=== PATIENT | female | born 1950 | race Caucasian/White ===

== ENCOUNTER 2020-03-22 15:53 | Outpatient (REF) | payer OTHER, SELFPAY ==
[2020-03-22 16:57] LABS: Alanine Aminotransferase 24 U/L (0-31); Anion Gap 11 (12-20); Blood Urea Nitrogen 16 mg/dL (9-16); Carbon Dioxide 26 mmol/L (22-29); Chloride 107 mmol/L (96-108); Estimated Glomerular Filt Rate 54; Sodium 140 mmol/L (135-145)
== END 2020-03-22 15:54 | disposition home or self-care (01) ==
LOC: HO.LAB 15:53
PROVIDERS: PCP Family Medicine; Visit Provider Family Medicine
DX: I10 Essential (primary) hypertension (principal); E78.00 Pure hypercholesterolemia, unspecified; Z79.899 Other long term (current) drug therapy
CPT/HCPCS: 36415; 80051; 82550; 82565; 84460; 84520

== ENCOUNTER 2020-04-25 12:47 | Outpatient (REF) | payer MEDICARE, OTHER, SELFPAY ==
--- NOTE | 2020-04-25 | MM_ITS ---
"EXAMINATION: BONE DENSITOMETRY CLINICAL INDICATION: Age-related osteoporosis without current pathological fracture. COMPARISON: Previous BD dated 04/23/2018 and baseline BD dated 10/04/2007. TECHNIQUE: Using a [id number] | [employer] DXA System (software version: 13.1) manufactured by [employer], dual-energy x-ray absorptiometry was performed of the lumbar spine and left hip. The images are of good technical quality. Summary results are attached. FINDINGS: AP SPINE L1-L4: Current: BMD 0.877 g/cm2, Z-score -1.6, T-score -2.5, osteoporosis, 0.6% decrease from previous, 9.5% decrease from baseline (<5% change is not significant). Prior: BMD 0.882 g/cm2. Baseline: BMD 0.969 g/cm2. LEFT FEMUR, NECK: Current: BMD 0.804 g/cm2, Z-score -1.6, T-score -1.7, osteopenia. Prior: BMD 0.817 g/cm2. Baseline: BMD 0.936 g/cm2. LEFT FEMUR, TOTAL: Current: BMD 0.845 g/cm2, Z-score -0.5, T-score -1.3, osteopenia, 0.2% decrease from previous, 10.9% decrease from baseline (<5% change is not significant). Prior: BMD 0.847 g/cm2. Baseline: BMD 0.948 g/cm2. IDENTIFIED RISK FACTORS: Menopause. HISTORY OF FRACTURE: None listed. MEDICATIONS: Vitamin D. MM/XR DEXA axial skeleton IMPRESSION: 1. DIAGNOSIS: Osteoporosis based on the lowest T-score value of -2.5 in the lumbar spine applying World Health Organization criteria. 2. 10-YEAR FRACTURE RISK PREDICTION, FRAX: Major osteoporotic fracture (clinical spine, forearm, hip or shoulder) 9.8%. Hip fracture 1.3%. 3. Treatment Recommendations: NOF guidelines recommend consideration for treatment in postmenopausal women and men age 50 and older presenting with the following: -A hip or vertebral (clinical or morphometric) fracture. -T-score less than or equal to -2.5 at the femoral neck or spine after appropriate evaluation to exclude secondary causes. -Low bone mass at the hip or spine and a 10-year fracture probability by FRAX of greater than or equal to 3% for hip fracture or greater than or equal to 20% for major osteoporotic fracture based on the [place] adapted WHO algorithm. 4. Other Recommendations: All treatment decisions require clinical judgment and consideration of individual patient factors, including patient preferences, comorbidities, previous drug use, risk factors not captured in the FRAX model (e.g. frailty, falls, vitamin D deficiency, increased bone turnover, interval significant decline in bone density) and possible under or overestimation of fracture risk by FRAX. Additional medical evaluation for secondary cause of low bone mineral density may be appropriate. FUTURE SCAN RECOMMENDATION: People with diagnosed cases of osteoporosis or at high risk for fracture should have regular bone mineral density tests. For patients eligible for Medicare, routine testing is allowed once every 2 years. The testing frequency can be increased to one year for patients who have rapidly progressing disease, those who are receiving or discontinuing medical therapy to restore bone mass, or have additional risk factors."
== END 2020-04-25 12:48 | disposition home or self-care (01) ==
LOC: HO.MAMMO 12:47
PROVIDERS: PCP Family Medicine; Visit Provider Obstetrics & Gynecology
DX: M81.0 Age-related osteoporosis without current pathological fracture (principal); Z78.0 Asymptomatic menopausal state
CPT/HCPCS: 77080

== ENCOUNTER → 2020-05-02 10:19 | Outpatient (BNVA) | payer OTHER, SELFPAY | PROVIDERS: PCP Family Medicine; Referring Provider Family Medicine; Visit Provider Obstetrics & Gynecology | DX: Z76.89 Persons encountering health services in other specified circumstances (principal) ==

== ENCOUNTER 2020-07-23 12:44 | Outpatient (REF) | payer MEDICARE, OTHER, SELFPAY ==
--- NOTE | 2020-07-23 | MM_ITS ---
EXAMINATION: MM BREAST SCREENING DIGITAL TOMOSYNTHESIS, BILATERAL CLINICAL INFORMATION: Screening. Asymptomatic. COMPARISON: Mammography: 07/18/2019 and studies dating back to 03/05/2012 TECHNIQUE: Digital breast tomosynthesis is performed in both the craniocaudal and mediolateral oblique views along with computer-aided detection (CAD). Synthesized 2D images are generated from the tomosynthesis. Exaggerated left craniocaudal view also performed. FINDINGS: The breasts are heterogeneously dense, which may obscure small masses (ACR BI-RADS breast composition Category c). Architectural distortion in the right breast from previous lumpectomy is present. There is multiplicity and bilaterality of calcifications without significant change. No new abnormal dominant mass is seen. MM/MM tomosynthesis screening BI IMPRESSION: There are no significant changes from prior study. ASSESSMENT: BI-RADS 2: Benign RECOMMENDATION: Routine annual mammography screening. This patient's information was entered into a reminder system with a target due date for their next mammogram.
== END 2020-07-23 12:45 | disposition home or self-care (01) ==
LOC: HO.MAMMO 12:44
PROVIDERS: PCP Family Medicine; Visit Provider Family Medicine
DX: Z12.31 Encounter for screening mammogram for malignant neoplasm of breast (principal)
CPT/HCPCS: 77063; 77067

== ENCOUNTER 2020-12-15 10:08 | Outpatient (REF) | payer MEDICARE, OTHER, SELFPAY ==
[2020-12-15 11:47] LABS: Anion Gap 11 (12-20); Blood Urea Nitrogen 14 mg/dL (9-16); Carbon Dioxide 26 mmol/L (22-29); Chloride 109 mmol/L (96-108); Estimated Glomerular Filt Rate > 60; Potassium 4.1 mmol/L (3.3-5.1); Sodium 142 mmol/L (135-145)
== END 2020-12-15 10:09 | disposition home or self-care (01) ==
LOC: HO.LAB 10:08
PROVIDERS: PCP Family Medicine; Visit Provider Family Medicine
DX: I10 Essential (primary) hypertension (principal)
CPT/HCPCS: 36415; 80051; 82565; 84520

== ENCOUNTER → 2021-04-16 08:45 | Outpatient (BNVA) | payer MEDICARE, OTHER, SELFPAY | PROVIDERS: PCP Family Medicine; Visit Provider Obstetrics & Gynecology ==

== ENCOUNTER 2021-06-08 08:51 | Outpatient (REF) | payer MEDICARE, OTHER, SELFPAY ==
[2021-06-08 11:21] LABS: Alanine Aminotransferase 24 U/L (0-31); Anion Gap 11 (12-20); Blood Urea Nitrogen 15 mg/dL (9-16); Carbon Dioxide 27 mmol/L (22-29); Chloride 107 mmol/L (96-108); Estimated Glomerular Filt Rate 53; Potassium 4.4 mmol/L (3.3-5.1); Sodium 141 mmol/L (135-145)
== END 2021-06-08 08:52 | disposition home or self-care (01) ==
LOC: HO.LAB 08:51
PROVIDERS: PCP Family Medicine; Visit Provider Family Medicine
DX: I10 Essential (primary) hypertension (principal); E78.00 Pure hypercholesterolemia, unspecified; Z79.899 Other long term (current) drug therapy
CPT/HCPCS: 36415; 80051; 82550; 82565; 84460; 84520

== ENCOUNTER 2021-07-30 09:10 | Outpatient (REF) | payer MEDICARE, OTHER, SELFPAY ==
--- NOTE | ~2021-07-30 | MM_ITS ---
EXAMINATION: MM SCREENING DIGITAL BREAST TOMOSYNTHESIS, BILATERAL CLINICAL INFORMATION: Right lumpectomy for breast cancer, 1997. Due for yearly. COMPARISON: Mammography: 07/23/2020, 07/18/2019, 07/12/1991, 07/09/2017 TECHNIQUE: Digital breast tomosynthesis is performed in both the craniocaudal and mediolateral oblique views along with computer-aided detection (CAD). Synthesized 2D images are generated from the tomosynthesis. FINDINGS: The breasts are heterogeneously dense, which may obscure small masses (ACR BI-RADS breast composition Category c). Post therapy changes right breast are again seen with reduced breast size and stable scarring and surgical clips in the lumpectomy bed. Neither breast shows interval mass or architectural abnormality or abnormal calcifications. Low left axillary tail nodes again noted as incidental finding. Parenchymal pattern similar to prior studies. There are no significant changes from prior exams. MM/MM tomosynthesis screening BI IMPRESSION: No significant changes from prior studies. Post therapy changes right breast. ASSESSMENT: BI-RADS 2: Benign RECOMMENDATION: Routine annual mammography screening. This patient's information was entered into a reminder system with a target due date for their next mammogram.
== END 2021-07-30 09:11 | disposition home or self-care (01) ==
LOC: HO.MAMMO 09:10
PROVIDERS: Visit Provider Family Medicine
DX: Z12.31 Encounter for screening mammogram for malignant neoplasm of breast (principal)
CPT/HCPCS: 77063; 77067

== ENCOUNTER 2021-12-27 17:02 | Outpatient (REF) | payer MEDICARE, OTHER, SELFPAY ==
[2021-12-27 17:43] LABS: Eosinophils Absolute Auto 0.1 X10*3/uL (0.0-0.4); Hemoglobin 12.7 g/dl (12.0-16.0); Mean Corpuscular Volume 81.2 fL (80.0-98.0); PLT CLUMP 1; Red Cell Distribution Width 12.5 % (11.0-16.0); SCAN SMEAR FLAG 1
[2021-12-27 17:45] LABS: Basophils Percent Auto 0.6 % (0-2); Hematocrit 36.7 % (37.0-47.0); Imm Gran Abs Auto 0.03 X10*3/uL (0.00-0.03); Imm Gran Pct Auto 0.5 % (0.0-0.4); Lymphocytes Absolute Auto 1.3 X10*3/uL (1.2-4.9); Lymphocytes Percent Auto 19.4 % (20-40); MANUAL DIFF FLAG SCAN; Mean Corpuscular HGB Conc 34.6 g/dl (31.0-35.0); Mean Corpuscular Hemoglobin 28.1 pg (27.0-33.0); Mean Platelet Volume 10.5 fL (9.4-12.3); Monocytes Absolute Auto 0.6 X10*3/uL (0.1-1.2); Neutrophils Absolute Auto 4.6 x10*3/uL (2.0-8.3); Neutrophils Percent Auto 68.5 % (45-73); Red Blood Count 4.52 X10*6/uL (4.20-5.50)
[2021-12-27 17:55] LABS: Platelet Count 121 X10*3/uL (160-400); White Blood Count 6.6 X10*3/uL (4.8-10.8)
[2021-12-27 18:04] LABS: SLIDE REVIEW VERIFIED
[2021-12-27 18:14] LABS: Alanine Aminotransferase 18 U/L (0-31); Anion Gap 12 (12-20); Aspartate Amino Transferase 19 U/L (5-31); Blood Urea Nitrogen 15 mg/dL (9-16); Carbon Dioxide 26 mmol/L (22-29); Chloride 107 mmol/L (96-108); Estimated Glomerular Filt Rate > 60; Potassium 4.1 mmol/L (3.3-5.1); Sodium 141 mmol/L (135-145)
[2021-12-27 18:36] LABS: Free T4 (Free Thyroxine) 0.78 ng/dL (0.71-1.85)
== END 2021-12-27 17:03 | disposition home or self-care (01) ==
LOC: HO.LAB 17:02
PROVIDERS: PCP Family Medicine; Visit Provider Family Medicine
DX: I10 Essential (primary) hypertension (principal); E78.00 Pure hypercholesterolemia, unspecified; Z79.899 Other long term (current) drug therapy
CPT/HCPCS: 36415; 80051; 82550; 82565; 84439; 84450; 84460; 84520; 85025

== ENCOUNTER 2022-02-13 13:49 | Outpatient (REF) | payer MEDICARE, OTHER, SELFPAY ==
[2022-02-13 15:45] LABS: Blood Urea Nitrogen 17 mg/dL (9-16); Estimated Glomerular Filt Rate > 60
== END 2022-02-13 13:50 | disposition home or self-care (01) ==
LOC: HO.LAB 13:49
PROVIDERS: PCP Family Medicine; Visit Provider Family Medicine
DX: Z01.812 Encounter for preprocedural laboratory examination (principal)
CPT/HCPCS: 36415; 82565; 84520

== ENCOUNTER 2022-02-21 08:36 | Outpatient (REF) | payer MEDICARE, OTHER, SELFPAY ==
--- NOTE | ~2022-02-21 | CT_ITS ---
EXAMINATION: CT SOFT TISSUE NECK WITH CONTRAST CLINICAL INFORMATION: Left-sided lymph node. COMPARISON: Enlarged lymph nodes. TECHNIQUE: Following the intravenous administration of 60 mL of Omnipaque 350 intravenous contrast, helical imaging was performed in the axial plane with generation of coronal and sagittal reformatted images. This CT examination was performed using dose optimization techniques as appropriate, variously including the following: *Automated exposure control *Adjustment of mA and/or kV according to patient size (this includes techniques or standardized protocols for targeted exams where dose is matched to indication/reason for exam; i.e. extremities or head) *Use of iterative reconstruction technique DLP: 310 mGy-cm FINDINGS: There are no pathologically enlarged cervical lymph nodes. No mediastinal or axillary adenopathy is visualized within the [id number] of this examination. Pharyngeal mucosal spaces are symmetric. Parapharyngeal and retromaxillary fat is preserved. Block Stacker spaces are unremarkable. Parotid and submandibular glands are normal. The tongue base and epiglottis are normal. Preepiglottic fat is preserved. Glottic and subglottic airways are patent. The thyroid gland is normal and the remainder of the visualized visceral soft tissues are normal. Lung apices are clear. Scattered atheromatous calcification involves the aortic arch apex and both carotid bifurcations. Cervical carotid and vertebral arteries are patent. Internal jugular veins fill symmetrically. There is no acute osseous finding. No worrisome lytic or blastic osseous lesion. There is a healing fracture of the right third rib which is partially included within the [id number] of this examination. The skull base is intact. No mastoid or middle ear effusion. No active paranasal sinus disease. Limited visualization of the intracranial anatomy reveals no abnormal finding. CT/CT soft tissue neck w IV con IMPRESSION: Unremarkable soft tissue neck CT scan. No identifiable enhancing soft tissue mass or adenopathy.
[2022-02-21] MEDS: iohexoL 350 MG/ML 100 ML INFUS..BTL IV (09:11)
== END 2022-02-21 08:37 | disposition home or self-care (01) ==
LOC: HO.CT 08:36
PROVIDERS: PCP Family Medicine; Visit Provider Family Medicine
DX: R59.0 Localized enlarged lymph nodes (principal)
CPT/HCPCS: 70491; Q9967

== ENCOUNTER 2022-04-29 10:05 | Outpatient (REF) | payer MEDICARE, OTHER, SELFPAY ==
--- NOTE | ~2022-04-29 | MM_ITS ---
EXAMINATION: BONE DENSITOMETRY CLINICAL INDICATION: Osteoporosis. COMPARISON: Previous BD dated 04/25/2020 and baseline BD dated 10/04/2007. TECHNIQUE: Using a [employer] DXA System (software version: 13.1) manufactured by [employer], dual-energy x-ray absorptiometry was performed of the lumbar spine and left hip. The images are of good technical quality. Summary results are attached. FINDINGS: AP SPINE L1-L4: Current: BMD 0.833 g/cm2, Z-score 0.1, T-score -2.9, osteoporosis, 5.0% decrease from previous, 14.0% decrease from baseline (<5% change is not significant). Prior: BMD 0.877 g/cm2. Baseline: BMD 0.969 g/cm2. LEFT FEMUR, NECK: Current: BMD 0.783 g/cm2, Z-score 0.7, T-score -1.8, osteopenia. Prior: BMD 0.804 g/cm2. Baseline: BMD 0.936 g/cm2. LEFT FEMUR, TOTAL: Current: BMD 0.823 g/cm2, Z-score 0.9, T-score -1.5, osteopenia, 2.6% decrease from previous, 13.2% decrease from baseline (<5% change is not significant). Prior: BMD 0.845 g/cm2. Baseline: BMD 0.948 g/cm2. IDENTIFIED RISK FACTORS: Menopause. HISTORY OF FRACTURE: None listed. MEDICATIONS: Vitamin D. MM/XR DEXA axial skeleton IMPRESSION: 1. DIAGNOSIS: Osteoporosis based on the lowest T-score value of -2.9 in the lumbar spine applying World Health Organization criteria. 2. 10-YEAR FRACTURE RISK PREDICTION, FRAX: According to the guidelines, FRAX calculation should only be performed on patients in the osteopenia bone density category. Therefore, FRAX was not performed on this patient. 3. Treatment Recommendations: NOF guidelines recommend consideration for treatment in postmenopausal women and men age 50 and older presenting with the following: -A hip or vertebral (clinical or morphometric) fracture. -T-score less than or equal to -2.5 at the femoral neck or spine after appropriate evaluation to exclude secondary causes. -Low bone mass at the hip or spine and a 10-year fracture probability by FRAX of greater than or equal to 3% for hip fracture or greater than or equal to 20% for major osteoporotic fracture based on the [place] adapted WHO algorithm. 4. Other Recommendations: All treatment decisions require clinical judgment and consideration of individual patient factors, including patient preferences, comorbidities, previous drug use, risk factors not captured in the FRAX model (e.g. frailty, falls, vitamin D deficiency, increased bone turnover, interval significant decline in bone density) and possible under or overestimation of fracture risk by FRAX. Additional medical evaluation for secondary cause of low bone mineral density may be appropriate. FUTURE SCAN RECOMMENDATION: People with diagnosed cases of osteoporosis or at high risk for fracture should have regular bone mineral density tests. For patients eligible for Medicare, routine testing is allowed once every 2 years. The testing frequency can be increased to one year for patients who have rapidly progressing disease, those who are receiving or discontinuing medical therapy to restore bone mass, or have additional risk factors.
== END 2022-04-29 10:06 | disposition home or self-care (01) ==
LOC: HO.MAMMO 10:05
PROVIDERS: PCP Family Medicine; Visit Provider Obstetrics & Gynecology
DX: Z13.820 Encounter for screening for osteoporosis (principal); Z78.0 Asymptomatic menopausal state
CPT/HCPCS: 77080

== ENCOUNTER 2022-05-23 09:29 | Day surgery (SDC) | payer MEDICARE, OTHER, SELFPAY ==
--- NOTE | 2022-05-22 12:34 | HO.ANESPROP2 ---
Documented by User: Elma Florian NP 05/22/22 15:04 HPI - Anesthesia Eval Consult details Narrative: 71yo F for Upper Endoscopy and Colonoscopy Low platelets @ 121k with last CBC in 12/2021 (previously ~140k in 2014). No etiology per PCP notes. Will repeat DOS. PMFSH Active Problems Active Problems: All Active Problems (Updated 05/12/22 @ 13:18 by London Rico MD) Uterine prolapse (Acute) Osteoporosis (Acute) Menopause (Acute) Well woman exam (Acute) Osteopenia (Acute) Past Medical History Medical History Anxiety Breast cancer, right Depression GERD (gastroesophageal reflux disease) High blood pressure High cholesterol Surgical History Surgical History S/P lumpectomy, right breast Social History Social History Alcohol intake: never Advance Directives: No Advance Directives Information Provided: Yes Sexual orientation: Straight/Heterosexual Gender identity: Female Meds Allergies Allergy/AdvReac Type Severity Reaction Status Date / Time No Known Allergies Allergy Verified 05/12/22 12:47 Home Medications Medication Instructions Recorded Confirmed Last Taken Type amlodipine 5 mg tablet 5 mg PO DAILY 05/02/20 Unknown History buspirone 10 mg tablet 10 mg PO TID 05/02/20 Unknown History cimetidine 300 mg tablet 300 mg PO BEDTIME 05/02/20 Unknown History citalopram 10 mg tablet 10 mg PO DAILY 05/02/20 Unknown History famotidine 40 mg tablet 40 mg PO BEDTIME 05/02/20 Unknown History losartan 100 mg tablet 100 mg PO DAILY 05/02/20 Unknown History simvastatin 40 mg tablet 40 mg PO BEDTIME 05/02/20 Unknown History trazodone 50 mg tablet 50 mg PO BEDTIME 05/02/20 Unknown History Exam Exam Date and Time: May 22, 2022 1234 Pertinent Lab Results Pertinent Lab Results: Laboratory Tests 12/27/21 12/27/21 02/13/22 17:13 17:13 14:02 WBC 6.6 Hgb 12.7 Hct 36.7 L Plt Count 121 L Sodium 141 Potassium 4.1 Chloride 107 Carbon Dioxide 26 BUN 17 H Creatinine 0.90 Assessment and Plan Assessment Anesthesia Assessment: Chart Reviewed Documented by User: Liv Dykes MD 05/23/22 10:53 PMFSH Past Medical History Medical History Anxiety Breast cancer, right Depression GERD (gastroesophageal reflux disease) High blood pressure High cholesterol Functional capacity: independent ambulation Family History Family history of problems with anesthesia: No Surgical History Surgical History S/P lumpectomy, right breast History of Problems with Anesthesia: No Social History Social History Alcohol intake: never Advance Directives: No Advance Directives Information Provided: Yes Sexual orientation: Straight/Heterosexual Gender identity: Female Meds Allergies Allergy/AdvReac Type Severity Reaction Status Date / Time No Known Allergies Allergy Verified 05/12/22 12:47 Home Medications Medication Instructions Recorded Confirmed Last Taken Type amlodipine 5 mg tablet 5 mg PO DAILY 05/02/20 Unknown History buspirone 10 mg tablet 10 mg PO TID 05/02/20 Unknown History cimetidine 300 mg tablet 300 mg PO BEDTIME 05/02/20 Unknown History citalopram 10 mg tablet 10 mg PO DAILY 05/02/20 Unknown History famotidine 40 mg tablet 40 mg PO BEDTIME 05/02/20 Unknown History losartan 100 mg tablet 100 mg PO DAILY 05/02/20 Unknown History simvastatin 40 mg tablet 40 mg PO BEDTIME 05/02/20 Unknown History trazodone 50 mg tablet 50 mg PO BEDTIME 05/02/20 Unknown History Assessment and Plan Assessment Anesthesia Assessment: Anesthesia Plan Discussed Final Anesthetic Review Family History of Problems with Anesthesia: No History of Problems with Anesthesia: No ASA Class: II Final Preanesthetic Review: No Changes in Pt Med Stat Patient Risk: Low Procedure Risk: Low Anesthetic Plan Anesthetic Plan: MAC:
[2022-05-23 10:20] LABS: Hematocrit 39.9 % (37.0-47.0); Hemoglobin 13.6 g/dl (12.0-16.0); Mean Corpuscular HGB Conc 34.1 g/dl (31.0-35.0); Mean Corpuscular Hemoglobin 27.9 pg (27.0-33.0); Mean Corpuscular Volume 81.9 fL (80.0-98.0); Mean Platelet Volume 9.9 fL (9.4-12.3); Platelet Count 134 X10*3/uL (160-400); Red Blood Count 4.87 X10*6/uL (4.20-5.50); Red Cell Distribution Width 12.3 % (11.0-16.0); White Blood Count 9.5 X10*3/uL (4.8-10.8)
[2022-05-23 10:41] LABS: Prothrombin Time 11.3 SEC (10.0-13.1)
[2022-05-23 12:08] VITALS: BP 115/68; PULSE 63; RESP 18; TEMP 36.4; O2SAT 99
--- NOTE | 2022-05-23 12:14 | P.BOP_ITS ---
Brief Operative Note Date of Service: 05/23/22 Pre-op diagnosis: GERD, Screening Post-op diagnosis: other (Reflux esophagitis, Gastritis, ? polyp at dentate line) Procedure: EGD with biopsies, Colonoscopy to the cecum with biopsies Surgeon: Xavier Farah Anesthesia: MAC Was an Hand Upper And Bottom Lacer used for this Procedure?: No Estimated blood loss (mL): 2.0 Pathology: other (A. Gastric antrum B. EG Junction at 35cm C. Biopsies from very distal rectum at area of dentate line R/O polyp) Condition: stable Disposition: PACU
[2022-05-23 12:23] VITALS: BP 132/62; PULSE 52; RESP 18; O2SAT 99
[2022-05-23 12:37] VITALS: BP 144/59; PULSE 56; RESP 18; TEMP 36.3; O2SAT 99
--- NOTE | 2022-05-23 22:36 | OP_ITS ---
SURGEON: Xavier Farah MD INDICATIONS: The patient presents for evaluation of chronic gastroesophageal reflux, previous history of H pylori and gastritis, and colorectal cancer screening. Full consent has been obtained from her for this, including risks of bleeding and perforation. PREOPERATIVE DIAGNOSIS: POSTOPERATIVE DIAGNOSIS: PROCEDURE PERFORMED: Esophagogastroduodenoscopy with biopsies, and colonoscopy to the cecum with biopsies. ESTIMATED BLOOD LOSS: COMPLICATIONS: ANESTHESIA: Monitored anesthesia care. ASSISTANTS: SPECIMENS: PREOPERATIVE DIAGNOSES: Gastroesophageal reflux, history of gastritis and Helicobacter pylori, colorectal cancer screening. POSTOPERATIVE DIAGNOSES: Gastroesophageal reflux, history of gastritis and Helicobacter pylori, colorectal cancer screening, reflux esophagitis, hiatal hernia, gastritis, question of polyp in very distal rectum at the dentate line, diverticulosis, and internal hemorrhoids. DESCRIPTION OF PROCEDURE: The patient was placed in the left lateral decubitus position. The Olympus video gastroscope was passed in the posterior oropharynx and upper esophagus under direct vision. The scope was passed slowly to the distal esophagus. The gastroesophageal junction appeared at 35 cm. At this level was evidence of some friability, esophagitis with some erosions, and edema. There was no evidence of any ulceration, mass, definitive Atkins mucosa, nor stricture. The scope entered into the stomach. There was a small to moderate-sized hiatal hernia. The scope was advanced to the pylorus and the duodenum was cannulated into the descending portion. The duodenum including the bulb appeared normal without mass or ulceration. The scope was withdrawn back to the stomach. The gastric antrum and body had a diffuse appearing gastritis with some erythema, edema, and some mucosal friability. There were no erosions or ulceration. There was good peristalsis. Biopsies were obtained. The scope was retroflexed visualizing the proximal stomach carefully, which appeared normal, without any sign of mass or ulceration. The scope was straightened and withdrawn back in the esophagus. Biopsies were obtained at the EG junction at 35 cm. Proximal to this, the esophageal mucosa appeared normal. The scope was withdrawn from the patient. She was turned around for the colonoscopy. The digital rectal exam revealed no abnormalities. The Olympus video pediatric colonoscope was entered into the rectum, advanced easily to the cecum. Once in the cecum, I did identify normal-appearing cecal pouch with appendiceal orifice and a normal-appearing ileocecal valve. There was transillumination of light deep in the right lower quadrant. The entire cecum and ileocecal valve appeared normal. The scope was slowly withdrawn assessing all mucosal surfaces carefully. Preparation was excellent. I did not visualize any sign of colitis, angiodysplasias, nor polyps in the colon. There was a mild amount of sigmoid diverticulosis. In the rectum, seen both in the forward viewing and retroflexed positions, was an area of what appeared to be some possible adenomatous tissue adjacent to the dentate line in the area of a hemorrhoid. Overall, this encompassed approximately 1/5 the circumference and appeared to be on the anterior wall. I was concerned this might reflect some adenomatous tissue and therefore several biopsies were obtained. However, the questionable lesion itself was not removed given its location and questionable appearance. The scope was straightened and withdrawn from the patient she tolerated both procedures well and was returned to recovery area in stable condition. IMPRESSION: 1. Reflux esophagitis. 2. Hiatal hernia. 3. Gastritis. 4. Question of polyp at the dentate line. 5. Diverticulosis. 6. Internal hemorrhoids. PLAN: The results of the biopsies will be checked. Given these findings, I shall switch her from famotidine to omeprazole to see if that can give her better symptomatic relief and heal the inflammatory changes on the upper GI findings. If H pylori is still present in the gastric mucosa, we could consider treating that at some point as well. She was advised not to use any aspirin nor NSAIDs long-term. If the biopsies from the distal rectum do show adenomatous tissue, I would plan to refer her to Dr. Carter for his evaluation and consideration of transanal excision. This has been discussed with her . MD TAJ Cuevas/JEAN / [id number]
== END 2022-05-23 13:15 | disposition home or self-care (01) ==
PROVIDERS: Nurse Practitioner; PCP Family Medicine; Visit Provider Internal Medicine
PROC: (CPT 45380; principal; 2022-05-23 10:30)
DX: Z12.11 Encounter for screening for malignant neoplasm of colon (principal); K57.30 Diverticulosis of large intestine without perforation or abscess without bleeding; K64.8 Other hemorrhoids; K63.89 Other specified diseases of intestine; K29.70 Gastritis, unspecified, without bleeding; K21.00 Gastro-esophageal reflux disease with esophagitis, without bleeding; K44.9 Diaphragmatic hernia without obstruction or gangrene; Z86.19 Personal history of other infectious and parasitic diseases; I10 Essential (primary) hypertension; E78.5 Hyperlipidemia, unspecified; F41.1 Generalized anxiety disorder; Z85.3 Personal history of malignant neoplasm of breast; Z92.3 Personal history of irradiation; Z79.82 Long term (current) use of aspirin; Z79.899 Other long term (current) drug therapy
CPT/HCPCS: 45380; 43239; 36415; 85027; 85610; 88305; 88312; 88342

== ENCOUNTER → 2022-07-23 08:27 | Outpatient (BNVA) | payer MEDICARE, OTHER, SELFPAY | PROVIDERS: PCP Family Medicine; Visit Provider Student in an Organized Health Care Education/Training Program | DX: M81.0 Age-related osteoporosis without current pathological fracture (principal) | CPT/HCPCS: 36415; 80053; 82306; 83519; 84165; 84443; 85025; 99202 ==

== ENCOUNTER 2022-07-23 09:29 | Outpatient (REF) | payer MEDICARE, OTHER, SELFPAY ==
[2022-07-23 10:38] LABS: MANUAL DIFF FLAG NO
[2022-07-23 10:43] LABS: Basophils Percent Auto 0.5 % (0-2); Eosinophils Absolute Auto 0.2 X10*3/uL (0.0-0.4); Eosinophils Percent Auto 1.8 % (0-4); Hematocrit 37.5 % (37.0-47.0); Hemoglobin 12.6 g/dl (12.0-16.0); Imm Gran Abs Auto 0.04 X10*3/uL (0.00-0.03); Imm Gran Pct Auto 0.5 % (0.0-0.4); Lymphocytes Absolute Auto 0.8 X10*3/uL (1.2-4.9); Lymphocytes Percent Auto 9.3 % (20-40); Mean Corpuscular HGB Conc 33.6 g/dl (31.0-35.0); Mean Corpuscular Hemoglobin 27.6 pg (27.0-33.0); Mean Corpuscular Volume 82.1 fL (80.0-98.0); Mean Platelet Volume 9.6 fL (9.4-12.3); Monocytes Absolute Auto 0.5 X10*3/uL (0.1-1.2); Monocytes Percent Auto 6.1 % (2-11); Neutrophils Percent Auto 81.8 % (45-73); Platelet Count 127 X10*3/uL (160-400); Red Blood Count 4.57 X10*6/uL (4.20-5.50); Red Cell Distribution Width 12.2 % (11.0-16.0); White Blood Count 8.6 X10*3/uL (4.8-10.8)
[2022-07-23 11:26] LABS: Alanine Aminotransferase 15 U/L (0-31); Albumin Level 4.4 g/dL (3.5-5.0); Alkaline Phosphatase 119 U/L (39-117); Anion Gap 12 (12-20); Aspartate Amino Transferase 17 U/L (5-31); Bilirubin Total 0.7 mg/dL (0.0-1.0); Blood Urea Nitrogen 13 mg/dL (9-16); Calcium 9.5 mg/dL (8.4-10.2); Carbon Dioxide 27 mmol/L (22-29); Chloride 108 mmol/L (96-108); Estimated Glomerular Filt Rate 53; Glucose Random 99 mg/dL (60-115); Sodium 143 mmol/L (135-145); Total Protein 7.1 g/dL (6.5-8.0)
[2022-07-23 11:27] LABS: TSH reflex Free T4 0.76 uIU/mL (0.32-4.0)
[2022-07-25 22:19] LABS: Prot Elec - Albumin 4.2 g/dL (3.8-4.8); Prot Elec - Alpha1 0.3 g/dL (0.2-0.3); Prot Elec - Alpha2 0.8 g/dL (0.5-0.9); Prot Elec - Beta 1 0.4 g/dL (0.4-0.6); Prot Elec - Beta 2 0.4 g/dL (0.2-0.5); Prot Elec - Gamma 1.1 g/dL (0.8-1.7); Prot Elec - Total Protein 7.2 g/dL (6.1-8.1)
[2022-07-26 14:14] LABS: Procollagen Type I Intact N 59 mcg/L (see note)
[2022-07-28 15:59] LABS: Vitamin D 25-OH, D2 <4 ng/mL; Vitamin D 25-OH, D3 26 ng/mL; Vitamin D 25-OH, Total 26 ng/mL (30-100)
== END 2022-07-23 09:30 | disposition home or self-care (01) ==
LOC: HO.10HDL 09:29
PROVIDERS: Visit Provider Student in an Organized Health Care Education/Training Program
DX: Z13.89 Encounter for screening for other disorder (principal)
CPT/HCPCS: 36415; 80053; 82306; 83519; 84165; 84443; 85025

== ENCOUNTER 2022-08-05 08:33 | Outpatient (REF) | payer MEDICARE, OTHER, SELFPAY ==
--- NOTE | ~2022-08-05 | MM_ITS ---
EXAMINATION: MM SCREENING DIGITAL BREAST TOMOSYNTHESIS, BILATERAL CLINICAL INFORMATION: Screening. Asymptomatic. Remote right breast cancer status post lumpectomy, 1997. COMPARISON: Mammography: 07/30/2021, 07/23/2020, 07/18/2019, 07/12/2018 TECHNIQUE: Digital breast tomosynthesis is performed in both the craniocaudal and mediolateral oblique views along with computer-aided detection (CAD). Synthesized 2D images are generated from the tomosynthesis. FINDINGS: The breasts are heterogeneously dense, which may obscure small masses (ACR BI-RADS breast composition Category c). Mammographic pattern is similar to prior studies. There are post therapy changes on the right with reduced breast size, surgical clips, and stable scarring. Left breast has incidental low axillary tail node on MLO view similar to prior exams. Neither breast shows interval mass or architectural abnormality or abnormal calcifications. There are no significant changes. MM/MM tomosynthesis screening BI IMPRESSION: -No mammographic evidence of malignancy. -Post therapy changes right breast. ASSESSMENT: BI-RADS 2: Benign RECOMMENDATION: Routine annual mammography screening. This patient's information was entered into a reminder system with a target due date for their next mammogram.
== END 2022-08-05 08:34 | disposition home or self-care (01) ==
LOC: HO.MAMMO 08:33
PROVIDERS: Visit Provider Family Medicine
DX: Z12.31 Encounter for screening mammogram for malignant neoplasm of breast (principal)
CPT/HCPCS: 77063; 77067

== ENCOUNTER 2022-08-12 12:02 | Outpatient (REF) | payer MEDICARE, OTHER, SELFPAY ==
[2022-08-12 13:35] LABS: MANUAL DIFF FLAG NO
[2022-08-12 13:52] LABS: Basophils Absolute Auto 0.1 X10*3/uL (0.0-0.2); Basophils Percent Auto 0.8 % (0-2); Eosinophils Absolute Auto 0.1 X10*3/uL (0.0-0.4); Hematocrit 36.9 % (37.0-47.0); Hemoglobin 12.4 g/dl (12.0-16.0); Imm Gran Abs Auto 0.02 X10*3/uL (0.00-0.03); Imm Gran Pct Auto 0.3 % (0.0-0.4); Lymphocytes Absolute Auto 1.2 X10*3/uL (1.2-4.9); Lymphocytes Percent Auto 18.2 % (20-40); Mean Corpuscular HGB Conc 33.6 g/dl (31.0-35.0); Mean Corpuscular Volume 83.3 fL (80.0-98.0); Mean Platelet Volume 10.2 fL (9.4-12.3); Monocytes Absolute Auto 0.4 X10*3/uL (0.1-1.2); Monocytes Percent Auto 6.7 % (2-11); Neutrophils Absolute Auto 4.6 x10*3/uL (2.0-8.3); Platelet Count 133 X10*3/uL (160-400); Red Blood Count 4.43 X10*6/uL (4.20-5.50); Red Cell Distribution Width 12.6 % (11.0-16.0); White Blood Count 6.4 X10*3/uL (4.8-10.8)
[2022-08-12 14:08] LABS: Anion Gap 11 (12-20); Blood Urea Nitrogen 17 mg/dL (9-16); Carbon Dioxide 26 mmol/L (22-29); Chloride 106 mmol/L (96-108); Estimated Glomerular Filt Rate > 60; Sodium 139 mmol/L (135-145)
== END 2022-08-12 12:03 | disposition home or self-care (01) ==
LOC: HO.10HDL 12:02
PROVIDERS: Internal Medicine; Visit Provider Family Medicine
DX: I10 Essential (primary) hypertension (principal); D69.6 Thrombocytopenia, unspecified
CPT/HCPCS: 36415; 80051; 82565; 84520; 85025

== ENCOUNTER 2023-02-06 09:44 | Outpatient (REF) | payer MEDICARE, OTHER, SELFPAY ==
[2023-02-06 10:48] LABS: Alanine Aminotransferase 34 U/L (0-31); Anion Gap 10 (12-20); Aspartate Amino Transferase 24 U/L (5-31); Blood Urea Nitrogen 16 mg/dL (9-16); Carbon Dioxide 27 mmol/L (22-29); Chloride 108 mmol/L (96-108); Estimated Glomerular Filt Rate 57; Sodium 141 mmol/L (135-145)
== END 2023-02-06 09:45 | disposition home or self-care (01) ==
LOC: HO.10HDL 09:44
PROVIDERS: Visit Provider Family Medicine
DX: I10 Essential (primary) hypertension (principal); E78.00 Pure hypercholesterolemia, unspecified; Z79.899 Other long term (current) drug therapy
CPT/HCPCS: 36415; 80051; 82550; 82565; 84450; 84460; 84520

== ENCOUNTER 2023-02-24 10:38 | Outpatient (AMB) | payer MEDICARE, OTHER, SELFPAY ==
--- NOTE | 2023-02-24 10:43 | MHC.OFFVIS ---
Intake Vital Signs 02/24/23 10:44 Height 5 ft 6 in Weight 193 lb 1.999 oz BMI 31.2 BP 150/72 H Blood Pressure Location Rt brachial Position Sitting Pulse 60 Pulse Source Pulse Oximeter Temp 98.1 F Temp Source Skin Pulse Oximetry (%) 96 Intake Visit Reasons: osteoporosis Intake Note: Pt seen today for osteoporosis follow up. 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 The plan was to start Prolia last visit. It was approved but patient never started it. She is worried about side effects. She was evaluated by a dentist and she is considering implants. She was told by the dentist that Prolia is not a good idea especially that if she is to have implants. Patient is worried about starting it. She takes a vitamin D and calcium nutritional supplement, she exercises regularly Initial history: This is a 71-year-old female with a past medical history of right breast cancer at/B lumpectomy and radiation many years ago, anxiety, hypertension presents for evaluation of osteoporosis. Patient was started on alendronate for osteoporosis but developed significant body aches and had to stop it. EGD also showed esophagitis. Patient has no complaints today. She was not on any treatment currently for osteoporosis. [facility] Medical History Anxiety Breast cancer, right Depression GERD (gastroesophageal reflux disease) High blood pressure High cholesterol Surgical History S/P lumpectomy, right breast Social History Alcohol intake: never Patient Tobacco Use Status: Never used Tobacco Sexual orientation: Straight/Heterosexual Gender identity: Female Female Reproductive History Menstrual Age of Menarche: 14 Review of Systems Const All systems reviewed & are unremarkable except as noted in HPI and below Musc Reports no additional complaints Neuro Reports no additional complaints Physical Exam Vital Signs: Last Vital Signs Temp 98.1 F 02/24/23 10:44 Pulse 60 02/24/23 10:44 BP 150/72 H 02/24/23 10:44 Pulse Ox 96 02/24/23 10:44 BMI result Body Mass Index 31.2 Const General: cooperative, healthy appearing and comfortable Nutritional Appearance: overweight Orientation/consciousness: patient oriented x3 Limitations: no limitations HEENT Head: Yes normocephalic and Yes atraumatic Resp Effort & Inspection: normal respiratory effort and able to speak in complete sentences Neuro General: patient oriented x3 Extrem Other: Mild osteoarthritic changes of both hands with Heberden's nodes Assessment & Plan Assessment & Plan (1) Osteoporosis: Code(s): M81.0 - Age-related osteoporosis without current pathological fracture Qualifiers: Osteoporosis type: age-related Presence of current pathological fracture: without current pathological fracture Qualified Code(s): M81.0 - Age-related osteoporosis without current pathological fracture Plan: This is a 71-year-old female who presents for evaluation of osteoporosis. DEXA in 04/2022 showed T-score-2.9 at the spine. Patient was on alendronate but developed significant body aches and could not continue it. We discussed therapeutic options for osteoporosis. Given development body aches on bisphosphonates would like to avoid it. I discussed risks and benefits of Prolia last visit patient agreed to proceed. Prolia was approved. Patient is hesitant about starting Prolia as she might get dental implants in the near future. Patient also would not be able to do daily injections if we are to use Forteo. For now patient would like to hold off on osteoporosis treatment. She is taking calcium and vitamin-D supplementation. She isn't sure about the dose. Advised patient to call the clinic let us know and I can advise her on the correct dose. Repeat DEXA 04/2024, follow-up afterwards Plan I spent 20 minutes reviewing patient's chart, evaluating patient, ordering diagnostic workup, counseling patient and documenting in the chart Orders: Orders XR DEXA axial skeleton 04/22/23 M81.0 - Age-related osteoporosis without current pathological fracture Coding Level of Care Code Est Pt Level 3 (19156) Diagnoses Osteoporosis M81.0 Osteoporosis type: age-related Presence of current pathological fracture: without current pathological fracture
[2023-02-24 10:44] VITALS: BP 150/72; PULSE 60; TEMP 36.7; O2SAT 96; BMI 31.2
== END 2023-02-24 11:08 | disposition home or self-care (01) ==
PROVIDERS: PCP Family Medicine; Visit Provider Student in an Organized Health Care Education/Training Program
DX: M81.0 Age-related osteoporosis without current pathological fracture (principal)
CPT/HCPCS: 99213

== ENCOUNTER → 2023-02-24 10:38 | Outpatient (BNVA) | payer MEDICARE, OTHER, SELFPAY | PROVIDERS: PCP Family Medicine; Visit Provider Student in an Organized Health Care Education/Training Program | DX: M81.0 Age-related osteoporosis without current pathological fracture (principal); E55.9 Vitamin D deficiency, unspecified | CPT/HCPCS: 99212 ==

== ENCOUNTER 2023-05-20 08:56 | Outpatient (AMB) | payer MEDICARE, OTHER, SELFPAY ==
--- NOTE | 2023-05-20 09:07 | A.OFFVIS_ITS ---
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 No complaints. Last Pap/HPV was few years ago was negative, no history of abnormal Pap smears as 25 year Last Mammogram was BI-RADS 2 in 08/14 Last Colonoscopy was a year ago Last DEXA scan was in 05/13 showed osteoporosis, the patient was referred to rheumatology for further management PFS Medical History Breast cancer, right Depression Anxiety GERD (gastroesophageal reflux disease) High blood pressure High cholesterol Surgical History S/P lumpectomy, right breast Social History Alcohol intake: never Patient Tobacco Use Status: Never used Tobacco Patient : No Sexual orientation: Straight/Heterosexual Gender identity: Female Female Reproductive History Menstrual Age of Menarche: 14 control method: none Total pregnancies: 3 Full term: 3 Number of Living Children: 3 Date of last pap smear: 03/06/15 (negative) History of abnormal pap smear: No Date of Mammogram: 08/05/22 Date of last Bone Density Screenin04/29/22 Review of Systems Const All systems reviewed & are unremarkable except as noted in HPI and below Card Reports as per HPI Resp Reports as per HPI GI Reports as per HPI and Reports no additional complaints Reports as per HPI Physical Exam Vital Signs: Last Vital Signs BP 152/84 H 05/20/23 09:09 BMI result Body Mass Index 29.6 Const General: cooperative, healthy appearing and comfortable Chest Chest palpation & inspection: normal inspection of the chest and normal palpation of entire chest wall Breast/axilla inspection: normal inspection of the breasts and normal inspection of the axillae Breast/axilla palpation: normal palpation of the breasts, normal palpation of the axillae and no axillary lymphadenopathy Resp Effort & Inspection: normal respiratory effort Auscultation: clear to auscultation bilaterally Percussion: percussion normal Cardio Palpation: normal PMI Rate: regular rate Rhythm: regular rhythm Heart sounds: no murmurs and no rubs Peripheral pulses: Peripheral pulses 2+ throughout GI Inspection: Yes normal to inspection Palpation (GI): Soft to palpation, nontender, no guarding, not rigid and No hepatosplenomegaly present Percussion: Yes normal to percussion Auscultation: normal bowel sounds Rectal Exam - Female: deferred General: Yes bladder normal to palpation External Female Exam: No lesion Speculum Exam - Vagina: normal appearance of the vagina, normal palpation, normal vaginal discharge and not erythematous Speculum Exam - Cervix: normal appearance of the cervix and normal palpation Bimanual exam- vagina & uterus: normal bimanual exam, normal palpation, uterine size normal, bladder normal to palpation, consistency normal and normal palpation Bimanual Exam- Adnexa, other: normal adnexae, no masses and no tenderness Assessment & Plan Assessment & Plan (1) Well woman exam: Code(s): Z01.419 - Encounter for gynecological examination (general) (routine) without abnormal findings Plan: Co testing not indicated since the patient 's age is above 65 with no history of abnormal Pap smears last 25 years. Counseled the patient about the recommended dietary allowance of 1200 mg of Calcium & 800 IU of vitamin D. Instruction given to patient to schedule her next screening Mammogram in 08/15. The patient was instructed to perform monthly self-breast exams and to schedule an annual exam in a year; All questions answered and the patient verbalized understanding. Coding Level of Care Code Est Pt Prev Care >65y(44300) Diagnoses Well woman exam Z01.419
[2023-05-20 09:09] VITALS: BP 152/84; BMI 29.6
== END 2023-05-20 09:48 | disposition home or self-care (01) ==
LOC: HO.HWS 08:56
PROVIDERS: PCP Family Medicine; Visit Provider Obstetrics & Gynecology
DX: Z01.419 Encounter for gynecological examination (general) (routine) without abnormal findings (principal)
CPT/HCPCS: G0101

== ENCOUNTER → 2023-05-20 08:56 | Outpatient (BNVA) | payer MEDICARE, OTHER, SELFPAY | PROVIDERS: PCP Family Medicine; Visit Provider Obstetrics & Gynecology | DX: Z01.419 Encounter for gynecological examination (general) (routine) without abnormal findings (principal) | CPT/HCPCS: G0101 ==

== ENCOUNTER 2023-07-22 08:38 | Outpatient (REF) | payer MEDICARE, OTHER, SELFPAY ==
[2023-07-22 10:12] LABS: Anion Gap 11 (12-20); Blood Urea Nitrogen 17 mg/dL (9-16); Carbon Dioxide 27 mmol/L (22-29); Chloride 107 mmol/L (96-108); Estimated Glomerular Filt Rate 54; Potassium 4.3 mmol/L (3.3-5.1); Sodium 141 mmol/L (135-145)
== END 2023-07-22 08:39 | disposition home or self-care (01) ==
LOC: HO.LAB 08:38
PROVIDERS: PCP Family Medicine; Visit Provider Family Medicine
DX: I10 Essential (primary) hypertension (principal)
CPT/HCPCS: 36415; 80051; 82565; 84520

== ENCOUNTER 2023-08-11 08:33 | Outpatient (REF) | payer MEDICARE, OTHER, SELFPAY ==
--- NOTE | ~2023-08-11 | MM_ITS ---
EXAMINATION: MM SCREENING DIGITAL BREAST TOMOSYNTHESIS, BILATERAL CLINICAL INFORMATION: Screening. Asymptomatic. Patient is status post remote right breast cancer surgery. COMPARISON: Mammography: This study is compared with prior exams dating back to 2019. TECHNIQUE: Digital breast tomosynthesis is performed in both the craniocaudal and mediolateral oblique views along with computer-aided detection (CAD). Synthesized 2D images are generated from the tomosynthesis. FINDINGS: There are scattered areas of fibroglandular density (ACR BI-RADS breast composition Category b). There are no significant masses, abnormal calcifications, or other abnormalities. There are postsurgical changes in the upper outer quadrant of the right breast related to prior cancer treatment. MM/MM tomosynthesis screening BI IMPRESSION: No mammographic evidence of malignancy. ASSESSMENT: BI-RADS BI-RADS 2 - Benign Findings RECOMMENDATION: Routine annual mammography screening. 1 year F/U This examination should not preclude the clinical evaluation of a suspicious palpable abnormality. This patient's information was entered into a reminder system with a target due date for their next mammogram.
== END 2023-08-11 08:34 | disposition home or self-care (01) ==
LOC: HO.MAMMO 08:33
PROVIDERS: PCP Family Medicine; Visit Provider Family Medicine
DX: Z12.31 Encounter for screening mammogram for malignant neoplasm of breast (principal)
CPT/HCPCS: 77063; 77067

== ENCOUNTER → 2023-08-11 08:45 | Outpatient (BNV) | payer MEDICARE, OTHER, SELFPAY | PROVIDERS: PCP Family Medicine; Visit Provider Radiology Diagnostic Radiology | DX: Z12.31 Encounter for screening mammogram for malignant neoplasm of breast (principal) | CPT/HCPCS: 77063; 77067 ==

== ENCOUNTER 2023-09-22 08:36 | Outpatient (REF) | payer MEDICARE, OTHER, SELFPAY ==
[2023-09-22 09:00] LABS: MANUAL DIFF FLAG NO
[2023-09-22 09:18] LABS: Basophils Percent Auto 0.7 % (0-2); Eosinophils Absolute Auto 0.1 X10*3/uL (0.0-0.4); Eosinophils Percent Auto 2.3 % (0-4); Hematocrit 38.1 % (37.0-47.0); Hemoglobin 13.2 g/dl (12.0-16.0); Imm Gran Abs Auto 0.03 X10*3/uL (0.00-0.03); Imm Gran Pct Auto 0.5 % (0.0-0.4); Lymphocytes Absolute Auto 1.1 X10*3/uL (1.2-4.9); Lymphocytes Percent Auto 18.3 % (20-40); Mean Corpuscular HGB Conc 34.6 g/dl (31.0-35.0); Mean Corpuscular Hemoglobin 28.3 pg (27.0-33.0); Mean Corpuscular Volume 81.8 fL (80.0-98.0); Monocytes Absolute Auto 0.4 X10*3/uL (0.1-1.2); Monocytes Percent Auto 6.6 % (2-11); Neutrophils Absolute Auto 4.4 x10*3/uL (2.0-8.3); Neutrophils Percent Auto 71.6 % (45-73); Platelet Count 126 X10*3/uL (160-400); Red Blood Count 4.66 X10*6/uL (4.20-5.50); Red Cell Distribution Width 12.5 % (11.0-16.0); White Blood Count 6.1 X10*3/uL (4.8-10.8)
[2023-09-22 09:46] LABS: Alanine Aminotransferase 20 U/L (0-31); Albumin Level 4.4 g/dL (3.5-5.0); Alkaline Phosphatase 77 U/L (39-117); Anion Gap 10 (12-20); Aspartate Amino Transferase 19 U/L (5-31); Bilirubin Total 0.5 mg/dL (0.0-1.0); Blood Urea Nitrogen 14 mg/dL (9-16); C Reactive Protein < 0.10 mg/dL (< or = 0.50); Calcium 9.6 mg/dL (8.4-10.2); Carbon Dioxide 27 mmol/L (22-29); Chloride 109 mmol/L (96-108); Cholesterol 156 mg/dL (<200); Estimated Glomerular Filt Rate > 60; Glucose Fasting 113 mg/dL (60-99); HDL Cholesterol 37 mg/dL (>40); LDL Cholesterol Calculated 88 mg/dL (<100); Potassium 4.2 mmol/L (3.3-5.1); Sodium 142 mmol/L (135-145); Total Protein 7.3 g/dL (6.5-8.0); Triglycerides 156 mg/dL (<150)
[2023-09-22 09:55] LABS: Erythrocyte Sedimentation Rate 5 MM/HR (0-20)
== END 2023-09-22 08:37 | disposition home or self-care (01) ==
LOC: HO.LAB 08:36
PROVIDERS: PCP Family Medicine; Visit Provider Family Medicine
DX: R68.83 Chills (without fever) (principal); E78.00 Pure hypercholesterolemia, unspecified; Z79.899 Other long term (current) drug therapy
CPT/HCPCS: 36415; 80053; 80061; 82550; 85025; 85652; 86140

== ENCOUNTER 2024-01-27 09:02 | Outpatient (REF) | payer MEDICARE, OTHER, SELFPAY ==
[2024-01-27 10:07] LABS: Estimated Average Glucose 105 mg/dL; Hemoglobin A1c % 5.3 % (<6.0)
[2024-01-27 10:15] LABS: Glucose Fasting 112 mg/dL (60-99)
== END 2024-01-27 09:03 | disposition home or self-care (01) ==
LOC: HO.LAB 09:02
PROVIDERS: PCP Family Medicine; Visit Provider Family Medicine
DX: R73.9 Hyperglycemia, unspecified (principal)
CPT/HCPCS: 36415; 82947; 83036

== ENCOUNTER 2024-05-13 10:42 | Outpatient (REF) | payer MEDICARE, OTHER, SELFPAY ==
[2024-05-13 11:03] LABS: MANUAL DIFF FLAG NO
[2024-05-13 11:42] LABS: Basophils Absolute Auto 0.1 X10*3/uL (0.0-0.2); Basophils Percent Auto 0.8 % (0-2); Eosinophils Absolute Auto 0.2 X10*3/uL (0.0-0.4); Eosinophils Percent Auto 2.3 % (0-4); Hemoglobin 12.8 g/dl (12.0-16.0); Imm Gran Abs Auto 0.03 X10*3/uL (0.00-0.03); Imm Gran Pct Auto 0.5 % (0.0-0.4); Lymphocytes Absolute Auto 1.3 X10*3/uL (1.2-4.9); Lymphocytes Percent Auto 20.2 % (20-40); Mean Corpuscular HGB Conc 33.7 g/dl (31.0-35.0); Mean Corpuscular Hemoglobin 27.6 pg (27.0-33.0); Mean Corpuscular Volume 82.1 fL (80.0-98.0); Monocytes Absolute Auto 0.6 X10*3/uL (0.1-1.2); Monocytes Percent Auto 9.3 % (2-11); Neutrophils Absolute Auto 4.3 x10*3/uL (2.0-8.3); Neutrophils Percent Auto 66.9 % (45-73); Platelet Count 129 X10*3/uL (160-400); Red Blood Count 4.63 X10*6/uL (4.20-5.50); Red Cell Distribution Width 12.5 % (11.0-16.0); White Blood Count 6.5 X10*3/uL (4.8-10.8)
[2024-05-13 12:14] LABS: Alanine Aminotransferase 29 U/L (0-31); Anion Gap 10 (12-20); Aspartate Amino Transferase 23 U/L (5-31); Blood Urea Nitrogen 16 mg/dL (9-16); Carbon Dioxide 30 mmol/L (22-29); Chloride 105 mmol/L (96-108); Estimated Glomerular Filt Rate > 60; Sodium 141 mmol/L (135-145)
== END 2024-05-13 10:43 | disposition home or self-care (01) ==
LOC: HO.LAB 10:42
PROVIDERS: PCP Family Medicine; Visit Provider Family Medicine
DX: E78.00 Pure hypercholesterolemia, unspecified (principal); Z79.899 Other long term (current) drug therapy; I10 Essential (primary) hypertension; E03.9 Hypothyroidism, unspecified
CPT/HCPCS: 36415; 80051; 82550; 82565; 84450; 84460; 84520; 85025

== ENCOUNTER 2024-05-31 07:58 | Outpatient (AMB) | payer MEDICARE, OTHER, SELFPAY ==
--- NOTE | 2024-05-31 08:03 | A.OFFVIS_ITS ---
Vital Signs 05/31/24 08:06 Height 5 ft 8 in Weight 197 lb 8.547 oz BMI 30.0 BP 142/80 H Blood Pressure Location Rt brachial Position Sitting Respiration 16 Pulse 83 Pulse Source Pulse Oximeter Pulse Oximetry (%) 98 Oxygen Delivery Method Room Air Intake Visit Reasons: osteoporosis/LM Intake Note: Patient presents for Osteoporosis. Allergies No Known Allergies Allergy (Verified 05/31/24 08:07) Medication List - Last Reconciled 05/31/24 by Nataly Murphy MD amlodipine 10 mg PO DAILY buspirone 10 mg PO TID calcitriol 0.5 mcg PO DAILY citalopram 10 mg PO DAILY losartan 100 mg PO DAILY omeprazole 40 mg PO DAILY simvastatin 40 mg PO BEDTIME trazodone 50 mg PO BEDTIME HPI Comments Details: This is a 73-year-old female with osteoporosis who presents for follow-up. In previous visits we had plan to start Prolia but patient did not started for fear of side effects. She has not had any falls or fractures since last visit. Gets intermittent joint pains related to osteoarthritis. Takes vitamin-D daily Initial history: This is a 71-year-old female with a past medical history of right breast cancer at/B lumpectomy and radiation many years ago, anxiety, hypertension presents for evaluation of osteoporosis. Patient was started on alendronate for osteoporosis but developed significant body aches and had to stop it. EGD also showed esophagitis. Patient has no complaints today. She was not on any treatment currently for osteoporosis. COUNT INCLUDES THE [facility] Medical History Breast cancer, right Depression Anxiety GERD (gastroesophageal reflux disease) High blood pressure High cholesterol Surgical History S/P lumpectomy, right breast Social History Alcohol intake: never Patient Tobacco Use Status: Never used Tobacco Sexual orientation: Straight/Heterosexual Gender identity: Female Female Reproductive History Menstrual Age of Menarche: 14 control method: none Total pregnancies: 3 Full term: 3 Number of Living Children: 3 Date of last pap smear: 03/06/15 (negative) History of abnormal pap smear: No Date of last Bone Density Screenin04/29/22 Review of Systems Const Reports weight gain Musc Reports deformity and Reports arthralgias Physical Exam Vital Signs: Last Vital Signs Pulse 83 05/31/24 08:06 Resp 16 05/31/24 08:06 BP 142/80 H 05/31/24 08:06 Pulse Ox 98 05/31/24 08:06 Oxygen Delivery Method Room Air 05/31/24 08:06 BMI result Body Mass Index 30.0 Const General: cooperative, healthy appearing and comfortable Nutritional Appearance: overweight Orientation/consciousness: patient oriented x3 Limitations: no limitations HEENT Head: Yes normocephalic and Yes atraumatic Resp Effort & Inspection: normal respiratory effort and able to speak in complete sentences Neuro General: patient oriented x3 Extrem Other: Mild osteoarthritic changes of both hands with Heberden's nodes Assessment & Plan Assessment & Plan (1) Osteoporosis: Code(s): M81.0 - Age-related osteoporosis without current pathological fracture Category: Medical Qualifiers: Osteoporosis type: age-related Presence of current pathological fracture: without current pathological fracture Qualified Code(s): M81.0 - Age- related osteoporosis without current pathological fracture Plan: This is a 73-year-old female who presents for follow-up of osteoporosis. DEXA in 04/2022 showed T-score-2.9 at the spine. Patient was on alendronate but developed significant body aches and could not continue it. We planned Prolia, it was approved but patient never started it due to fear of side effects. She has been taking her calcitriol daily. She has not had any falls or fractures since last visit. I will repeat her bone density scan. Check repeat labs including vitamin-D level in 3-4 months. Certainly if there is worsening bone density we should reconsider starting treatment for osteoporosis. Can consider anabolic agent such as Romosuzumab Discussed avoiding falls, discussed weight-bearing exercises Follow-up in 4 months Plan I spent 15 minutes reviewing patient's chart, evaluating patient, ordering diagnostic workup, counseling patient and documenting in the chart Orders: Orders XR DEXA axial skeleton 08/16/24 M81.0 - Age-related osteoporosis without current pathological fracture Vitamin D 25-OH Total 3 Months E55.9 - Vitamin D deficiency, unspecified Comprehensive Met. Panel 3 Months M81.0 - Age-related osteoporosis without current pathological fracture Coding Level of Care Code Est Pt Level 3 (32567) Diagnoses Age-related osteoporosis without current pathological fracture M81.0 Osteoporosis type: age-related Presence of current pathological fracture: without current pathological fracture
[2024-05-31 08:06] VITALS: BP 142/80; PULSE 83; RESP 16; O2SAT 98
--- OUTSIDE RECORDS SUMMARY | 2024-06-01 18:42 | XMS_ITS | Patient Health Record ---
Author Organization [facility] Address [address] [place] [address] Care Team Providers Care Production Illustrator Name Role Phone Matt GIORDANO, Leandro Primary Care Provider UnavailXavier Choudhary Unavailable [phone] ALLERGIES No Known Allergies REASON FOR REFERRAL No Information MEDICATIONS Medication SIG (Take, Route, Frequency, Duration) Notes Start Date End Date Status Simvastatin 40 MG Oral for 90 Active busPIRone HCl 10 MG TAKE 1 TABLET BY JARRETT TH THREE TIMES A DAY Oral for 90 Active Letha Aspirin EC Low Dose 81 MG 1 tablet Orally Once a day for 30 day(s) Active Losartan Potassium 100 MG Oral for 90 Active Famotidine 40 MG Oral for 90 A ctive amLODIPine Besylate 5 MG Oral for 90 Active traZODone HCl 50 MG TAKE 1 TABLET BY JARRETT TH EVERYDAY AT BEDTIME Oral for 90 Active Vitamin D3 25 MCG (1000 UT) 1 capsule Or ally Once a day for 30 day(s) Active Citalopram Hydrobromide 10 MG Oral for 90 Active Omeprazole 40 MG TAKE 1 CAP BY MOUTH EVERY MORNING for 90 Active IMMUNIZATIONS Vaccine Route Administration Date Status Comme nts Influenza Unknown 04/01/2022 Administered SOCIAL HISTORY Tobacco Use: Social History Observation Description Date Details (start date - stop date) Never Smoker NA - NA Sex Assigned At : Social History Observation Description Sex Assigned At Unknown Tobacco Use/Smoking Question Answer Notes Patient is a nonsmoker Alcohol Screen Question Answer Notes Did you have a drink containing alcohol in the p ast year? No Points 0 Interpretation Negative PROBLEMS Problem Type ICD Code Onset Dates Problem Status W/U Status Risk SNOMED Code Notes Problem GERD (gastroesophageal reflux disease) (K21.9) Active confirmed Gastroesophagea l reflux disease (787373635) Problem Colon cancer screening (Z12.11) Active confirmed Colon cancer screening (375781919) Problem Gastritis (K29.70) Active confirmed Gastritis (0826013) Problem Diverticulosis of large intestine without perforation or abscess without bleeding (K57.30) Active confirmed Diverticul ar disease of colon (235922242) Problem Gastro-esophageal reflux disease with esophagitis, without bleeding (K21.00) Active confirmed Gastroesophagea l reflux disease with esophagitis (disorder) (270612639) PLAN OF TREATMENT Future Test Test Name Order Date UPPER GI ENDOSCOPY 04/01/2022 COLONOSCOPY 04/01/2022 Insurance Providers Payer Name Payer Address Payer Phone Subscriber Number Group Number Insured Name Patient Relationship to Insured Coverage Start Date Coverage End Date MEDICARE OF [employer] [address] [place], [place] [id number] ULISES WHITING Self - patient is the insured [employer]er [employer] [facility] [address] [place] [id number] [id number] ULISES WHITING Self - patient is the insured MEDICAL (GENERAL) HISTORY Medical History History ICD Code Right breast cancer > 20 years ago--lump ectomy/lymph nodes/XRT Hypertension Denies NE,DM,CVA,Lung disease,renal dise ase Neg. colonoscopy [place] [address] Hernandez EGD in 2008 with H.pylori, s/p antibioti c treatment Anxiety Hyperlipidemia Surgical History Surgery Date(Month/Year) Cataracts Breast cancer as above Right thigh--removal of basal cell skin cancer
== END 2024-05-31 08:27 | disposition home or self-care (01) ==
PROVIDERS: PCP Family Medicine; Visit Provider Student in an Organized Health Care Education/Training Program
DX: M81.0 Age-related osteoporosis without current pathological fracture (principal)
CPT/HCPCS: 99213

== ENCOUNTER → 2024-05-31 07:58 | Outpatient (BNVA) | payer MEDICARE, OTHER, SELFPAY | PROVIDERS: PCP Family Medicine; Visit Provider Student in an Organized Health Care Education/Training Program | DX: M81.0 Age-related osteoporosis without current pathological fracture (principal) | CPT/HCPCS: 99212 ==

== ENCOUNTER 2024-08-15 08:58 | Outpatient (AMB) | payer MEDICARE, OTHER, SELFPAY ==
--- NOTE | 2024-08-15 09:05 | MHC.OFFVIS ---
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 Complaining of right axillary lump at the site of previous scar for axillary lymph node dissection Last Pap/HPV was few years ago was negative, no history of abnormal Pap smears as 25 year Last Mammogram was BI-RADS 2 in 08/15 Last Colonoscopy was 2 years ago Last DEXA scan was in 05/13 showed osteoporosis, the patient was referred to rheumatology for further management PFSH Medical History Breast cancer, right Depression Anxiety GERD (gastroesophageal reflux disease) High blood pressure High cholesterol Surgical History S/P lumpectomy, right breast Social History Alcohol intake: never Patient Tobacco Use Status: Never used Tobacco Sexual orientation: Straight/Heterosexual Gender identity: Female Female Reproductive History Menstrual Age of Menarche: 14 Total pregnancies: 3 Full term: 3 Date of Mammogram: 08/15/23 Date of last Bone Density Screenin04/29/22 Review of Systems Const All systems reviewed & are unremarkable except as noted in HPI and below Card Reports as per HPI Resp Reports as per HPI GI Reports as per HPI and Reports no additional complaints Reports as per HPI Physical Exam Vital Signs: Last Vital Signs BP 142/82 H 08/15/24 09:10 BMI result Body Mass Index 29.3 Const General: cooperative, healthy appearing and comfortable Chest Chest palpation & inspection: normal inspection of the chest and normal palpation of entire chest wall Breast/axilla inspection: normal inspection of the breasts and normal inspection of the axillae Breast/axilla palpation: normal palpation of the breasts, palpation of the axillae normal (Right axillary? lump at the site of previous scar, left within normal) and axillary lymphadenopathy noted (Right axillary? lump at the site of previous scar, left within normal) Resp Effort & Inspection: normal respiratory effort Auscultation: clear to auscultation bilaterally Percussion: percussion normal Cardio Palpation: normal PMI Rate: regular rate Rhythm: regular rhythm Heart sounds: no murmurs and no rubs Peripheral pulses: Peripheral pulses 2+ throughout GI Inspection: Yes normal to inspection Palpation (GI): Soft to palpation, nontender, no guarding, not rigid and No hepatosplenomegaly present Percussion: Yes normal to percussion Auscultation: normal bowel sounds Rectal Exam - Female: deferred General: Yes bladder normal to palpation External Female Exam: No lesion Speculum Exam - Vagina: normal appearance of the vagina, normal palpation, normal vaginal discharge and not erythematous Speculum Exam - Cervix: normal appearance of the cervix and normal palpation Bimanual exam- vagina & uterus: normal bimanual exam, normal palpation, uterine size normal, bladder normal to palpation, consistency normal and normal palpation Bimanual Exam- Adnexa, other: normal adnexae, no masses and no tenderness Assessment & Plan Assessment & Plan (1) Well woman exam: Code(s): Z01.419 - Encounter for gynecological examination (general) (routine) without abnormal findings Category: Medical Plan: Co testing not indicated since the patient 's age is above 65 with no history of abnormal Pap smears last 25 years. Counseled the patient about the recommended dietary allowance of 1200 mg of Calcium & 800 IU of vitamin D. Mammogram o schedule tomorrow The patient is under the care of rheumatology for osteoporosis, and is scheduled for DEXA scan tomorrow The patient was instructed to perform monthly self-breast exams and to schedule a 2 week DEXA scan follow-up appointment and an annual exam in a year; All questions answered and the patient verbalized understanding. (2) Lump of axillary tail of right breast: Comment: At the site of scar of previous right axillary lymph node dissection Code(s): N63.31 - Unspecified lump in axillary tail of the right breast Category: Medical Plan: Discussed with the patient the finding on Breast exam (right axillary lump at the site of right axillary previous scar) .The differential diagnosis includes but not limited to lump/cyst/pre cancer/cancer or dense tissue. The work up includes breast US and diagnostic mammogram and referred the patient for surgical breast consult. Orders: Orders MM tomosynthesis diagnostic BI Today N63.31 - Unspecified lump in axillary tail of the right breast US breast RT complete Today N63.31 - Unspecified lump in axillary tail of the right breast Referrals General Surgery Referral N63.31 - Unspecified lump in axillary tail of the right breast Coding Level of Care Code Est Pt Level 3 (00992) Est Pt Prev Care >65y(78645) Diagnoses Well woman exam Z01.419 Lump of axillary tail of right breast N63.31
[2024-08-15 09:10] VITALS: BP 142/82; BMI 29.3
--- OUTSIDE RECORDS SUMMARY | 2024-08-15 09:29 | XMS_ITS | Patient Health Record ---
Author Organization [facility] Address [address] [place] [address] Care Team Providers Care Hood Maker Name Role Phone Matt GIORDANO, Leandro Primary Care Provider UnavailXavier Choudhary Unavailable [phone] ALLERGIES No Known Allergies REASON FOR REFERRAL [...] W/U Status Risk SNOMED Code Notes Problem Colon cancer screening (Z12.11) Active confirmed Colon cancer screening (627608847) Problem Diverticulosis of large intestine without perforation or abscess without bleeding (K57.30) Active confirmed Diverticul ar disease of colon (661624624) Problem Gastritis (K29.70) Active confirmed Gastritis (0236622) Problem GERD (gastroesophageal reflux disease) (K21.9) Active confirmed Gastroesophagea l reflux disease (637229075) Problem Gastro-esophageal reflux disease with esophagitis, without bleeding (K21.00) Active confirmed Gastroesophagea l reflux disease with esophagitis (disorder) (142753753) PLAN OF TREATMENT Future Test Test Name Order Date UPPER GI ENDOSCOPY 04/01/2022 COLONOSCOPY 04/01/2022 Insurance Providers Payer Name Payer Address Payer Phone Subscriber Number Group Number Insured Name Patient Relationship to Insured Coverage Start Date Coverage End Date MEDICARE OF [address] [place] [address] [id number] ULISES WHITING Self - patient is the insured [employer], [employer] [facility] & [address] [place] [address] [id number] ULISES WHITING Self - patient is the insured MEDICAL (GENERAL) HISTORY Medical History History ICD Code Right breast cancer > 20 years ago--lump ectomy/lymph nodes/XRT Hypertension Denies ND,DM,CVA,Lung disease,renal dise ase Neg. [place] [address] Hernandez EGD in 2008 with H.pylori, s/p antibioti c treatment Anxiety Hyperlipidemia Surgical History Surgery Date(Month/Year) Cataracts Breast cancer as above Right thigh--removal of basal cell skin cancer
== END 2024-08-15 09:56 | disposition home or self-care (01) ==
LOC: HO.HWS 08:58
PROVIDERS: PCP Family Medicine; Visit Provider Obstetrics & Gynecology
DX: Z01.419 Encounter for gynecological examination (general) (routine) without abnormal findings (principal); N63.31 Unspecified lump in axillary tail of the right breast
CPT/HCPCS: 99213; 99397; 99459

== ENCOUNTER → 2024-08-15 08:58 | Outpatient (BNVA) | payer MEDICARE, OTHER, SELFPAY | PROVIDERS: PCP Family Medicine; Visit Provider Obstetrics & Gynecology | DX: Z01.419 Encounter for gynecological examination (general) (routine) without abnormal findings (principal); N63.31 Unspecified lump in axillary tail of the right breast | CPT/HCPCS: 99212; 99397; 99459 ==

== ENCOUNTER 2024-08-16 08:42 | Outpatient (REF) | payer MEDICARE, OTHER, SELFPAY ==
--- NOTE | ~2024-08-16 | MM_ITS ---
EXAMINATION: DXA BONE DENSITY AXIAL HISTORY: Estrogen deficiency TECHNIQUE: [employer] (formerly [employer]) Dual energy absorptiometry (DEXA) of the lumbar spine, total left hip, and femoral neck was performed. COMPARISON: Comparison is made with the prior examination dated 04/29/2022. FINDINGS: The bone mineral density of the lumbar spine is 0.878 with a T-score of -2.5, and a Z-score of -1.5. This represents a BMD change of 5.4% compared to the prior exam. This is statistically significant. The bone mineral density of the left total hip is 0.832 with a T-score of -1.4, and a Z-score of -0.3. This represents BMD change of 1.1% compared to the prior exam. This is not statistically significant. The bone mineral density of the left femoral neck is 0.833 with a T-score of -1.5, and a Z-score of -0.2. This represents BMD change of 6.4% compared to the prior exam. FRACTURE RISK: The FRAX index suggests a ten year probability of major osteoporotic fracture of 10.1%, and of hip fracture 1.6%. MM/XR DEXA axial skeleton IMPRESSION: Based on bone mineral density, and according to World Health Organization (WHO) criteria, the diagnosis is consistent with osteoporosis. All bone density values are in grams per centimeter squared (g/cm2). Statistically, 68% of repeat scans fall within 1 SD (+/- 0.010 g/cm2 for AP spine L1-L4) and 1 SD (+/- 0.012 g/cm2 for femur total) FRAX is a trademark of the [employer]'s [employer] Metabolic Bone Disease, a World Health Organization (WHO) Collaborating Center. Electronically signed by: Xavier Barboza MD 08/16/2024 10:51 AM [facility]
--- OUTSIDE RECORDS SUMMARY | 2024-08-16 09:15 | XMS_ITS | Patient Health Record ---
Author Organization [facility] Address [address] [place] [address] Care Team Providers Care Probate Clerk Name Role Phone Matt GIORDANO, Leandro Primary Care Provider UnavailXavier Choudhary Unavailable [phone] ALLERGIES No Known Allergies REASON FOR REFERRAL [...] screening (Z12.11) Active confirmed Colon cancer screening (640704193) Problem Diverticulosis of large intestine without perforation or abscess without bleeding (K57.30) Active confirmed Diverticul ar disease of colon (059509031) Problem Gastritis (K29.70) Active confirmed Gastritis (0415445) Problem GERD (gastroesophageal reflux disease) (K21.9) Active confirmed Gastroesophagea l reflux disease (564848398) Problem Gastro-esophageal reflux disease with esophagitis, without bleeding (K21.00) Active confirmed Gastroesophagea l reflux disease with esophagitis (disorder) (291066468) PLAN OF TREATMENT Future Test Test Name Order Date UPPER GI ENDOSCOPY 04/01/2022 COLONOSCOPY 04/01/2022 Insurance Providers Payer Name Payer Address Payer Phone Subscriber Number Group Number Insured Name Patient Relationship to Insured Coverage Start Date Coverage End Date MEDICARE OF [address] [place] [address] [phone] [id number] ULISES WHITING Self - patient is the insured [employer], [employer], & [employer] HEALTH & [address] [place] [address] [id number] ULISES WHITING Self - patient is the insured MEDICAL (GENERAL) HISTORY Medical History History ICD Code Right breast cancer > 20 years ago--lump ectomy/lymph nodes/XRT Hypertension Denies CA,DM,CVA,Lung disease,renal dise ase Neg. colonoscopy [place] [address] Hernandez EGD in 2008 with H.pylori, s/p antibioti c treatment Anxiety Hyperlipidemia Surgical History Surgery Date(Month/Year) Cataracts Breast cancer as above Right thigh--removal of basal cell skin cancer
== END 2024-08-16 08:43 | disposition home or self-care (01) ==
LOC: HO.MAMMO 08:42
PROVIDERS: PCP Family Medicine; Visit Provider Student in an Organized Health Care Education/Training Program
DX: Z13.89 Encounter for screening for other disorder (principal)
CPT/HCPCS: 77080

== ENCOUNTER → 2024-08-16 09:15 | Outpatient (BNV) | payer MEDICARE, OTHER, SELFPAY | PROVIDERS: PCP Family Medicine; Visit Provider Radiology Diagnostic Radiology | DX: E28.39 Other primary ovarian failure (principal) | CPT/HCPCS: 77080 ==

== ENCOUNTER 2024-08-16 09:28 | Outpatient (REF) | payer MEDICARE, OTHER, SELFPAY ==
[2024-08-16 10:47] LABS: Alanine Aminotransferase 27 U/L (0-31); Albumin Level 4.4 g/dL (3.5-5.0); Alkaline Phosphatase 85 U/L (39-117); Anion Gap 10 (12-20); Aspartate Amino Transferase 32 U/L (5-31); Bilirubin Total 0.5 mg/dL (0.0-1.0); Blood Urea Nitrogen 16 mg/dL (9-16); Calcium 9.9 mg/dL (8.4-10.2); Carbon Dioxide 29 mmol/L (22-29); Chloride 109 mmol/L (96-108); Estimated Glomerular Filt Rate > 60; Glucose Random 101 mg/dL (60-115); Potassium 4.2 mmol/L (3.3-5.1); Sodium 144 mmol/L (135-145); Total Protein 7.8 g/dL (6.5-8.0)
[2024-08-16 10:54] LABS: Vitamin D 25-OH Total 32.4 ng/mL (>30)
== END 2024-08-16 09:29 | disposition home or self-care (01) ==
LOC: HO.LAB 09:28
PROVIDERS: PCP Family Medicine; Visit Provider Student in an Organized Health Care Education/Training Program
DX: E55.9 Vitamin D deficiency, unspecified (principal); M81.0 Age-related osteoporosis without current pathological fracture
CPT/HCPCS: 36415; 77080; 80053; 82306

== ENCOUNTER 2024-09-12 08:37 | Outpatient (REF) | payer MEDICARE, OTHER, SELFPAY ==
--- NOTE | ~2024-09-12 | MM_ITS ---
EXAMINATION: MM DIAGNOSTIC DIGITAL BREAST TOMOSYNTHESIS, BILATERAL Bilateral Limited ultrasound. CLINICAL INFORMATION: History of right breast cancer status post lumpectomy. Right axillary palpable lump. COMPARISON: Mammography: Comparison is made with relevant prior exams. TECHNIQUE: Digital breast mammography with tomosynthesis is performed in both the craniocaudal and mediolateral oblique views along with computer-aided detection (CAD). FINDINGS: The breasts are heterogeneously dense, which may obscure small masses (ACR BI-RADS breast composition Category c). Right: Post lumpectomy changes are stable. No suspicious masses calcifications or other abnormal findings. Targeted color Doppler ultrasound scanning in the right axilla area of patient's palpable lump demonstrates normal axillary tissue. No suspicious sonographic finding. Left: Asymmetry in the low axillary region localizes central and kathy synthesis far posterior depth with questioned distortion. No other suspicious masses calcifications or other abnormal findings. Targeted color Doppler ultrasound in the left lower axilla and posterior breasts demonstrates normal axillary lymph node at 3:00 12 cm from the nipple and normal simple to minimally complicated cysts and ectatic ducts at 3:00 8 cm from the nipple. Results are provided to the patient at time of visit by the technologist. MM/MM tomosynthesis diagnostic BI IMPRESSION: Right: Post lumpectomy changes are benign. No mammographic or sonographic abnormality to account for the patient's right axillary palpable lump. Recommend clinical evaluation and follow-up. Left: Asymmetry in the low axillary region without sonographic correlate. Recommend 6 month follow-up left breast mammography for further evaluation of stability. Breast MRI could be considered given patient's history of breast cancer for further confirmation. Breast MRI would need to be ordered by the patient's providing clinician. ASSESSMENT: BI-RADS BI-RADS 3 - Probably benign finding(s) - 6 month follow-up suggested RECOMMENDATION: 6 Month F/U Recommend consider breast MRI for further confirmation. This patient's information was entered into a reminder system with a target due date for their next mammogram. Electronically signed by: Della Hinojosa DO 09/12/2024 11:47 AM EDT
== END 2024-09-12 08:38 | disposition home or self-care (01) ==
LOC: HO.MAMMO 08:37
PROVIDERS: PCP Family Medicine; Visit Provider Obstetrics & Gynecology
DX: N63.31 Unspecified lump in axillary tail of the right breast (principal); R92.331 Mammographic heterogeneous density, right breast; N64.89 Other specified disorders of breast; Z85.3 Personal history of malignant neoplasm of breast
CPT/HCPCS: 76642; 77062; 77066

== ENCOUNTER → 2024-09-12 09:00 | Outpatient (BNV) | payer MEDICARE, OTHER, SELFPAY | PROVIDERS: PCP Family Medicine; Visit Provider Internal Medicine | DX: N63.31 Unspecified lump in axillary tail of the right breast (principal); Z85.3 Personal history of malignant neoplasm of breast | CPT/HCPCS: 76642; 77066; G0279 ==

== ENCOUNTER 2024-09-20 09:46 | Outpatient (AMB) | payer MEDICARE, OTHER, SELFPAY ==
--- NOTE | 2024-09-20 09:46 | MHC.OFFVIS ---
Vital Signs 09/20/24 09:47 Height 5 ft 8 in Weight 190 lb BMI 28.9 BP 138/83 Blood Pressure Location Lt brachial Position Sitting Pulse 93 Pulse Source Pulse Oximeter Pulse Oximetry (%) 96 Oxygen Delivery Method Room Air Intake Visit Reasons: Lump~ Rt axilla along scar/ previous lymph node bx Intake Note: Patient referred by Dr. Rico for lump on Rt axilla along previous lymph node bx scar. Allergies No Known Allergies Allergy (Verified 09/20/24 09:49) HPI Comments Details: Patient presents for evaluation of the question of a right axillary mass/adenopathy. Suspected by her steel checker doctor. She has subsequently had both mammogram and ultrasound which were negative. She herself has not noticed anything in particular in the right axilla. Patient was 29 years status post right lumpectomy, axillary dissection, and radiation therapy to the right breast.. She is a has been very diligent about follow-up care for this. Chart was reviewed and patient evaluated [facility] Medical History Breast cancer, right Depression Anxiety GERD (gastroesophageal reflux disease) High blood pressure High cholesterol Surgical History S/P lumpectomy, right breast Social History Alcohol intake: never Patient Tobacco Use Status: Never used Tobacco Sexual orientation: Straight/Heterosexual Gender identity: Female Female Reproductive History Menstrual Age of Menarche: 14 Physical Exam Vital Signs: Last Vital Signs Pulse 93 09/20/24 09:47 BP 138/83 09/20/24 09:47 Pulse Ox 96 09/20/24 09:47 Oxygen Delivery Method Room Air 09/20/24 09:47 BMI result Body Mass Index 28.9 Chest Other: Bilateral breast exam demonstrate no obvious mass, discharge, adenopathy, or skin changes. Patient has some radiation tattooing still present and left upper outer quadrant scar well healed. Axillary scar demonstrated. No obvious right axillary mass or adenopathy was demonstrated. Contralateral left breast negative. No evidence of any periclavicular or cervical adenopathy either. GI Other: Abdomen corpulent, soft, benign Assessment & Plan Assessment & Plan (1) Lump of axillary tail of right breast: Comment: At the site of scar of previous right axillary lymph node dissection Code(s): N63.31 - Unspecified lump in axillary tail of the right breast Category: Surgical Plan At present, patient will be treated conservatively. She was encouraged through self-breast exam. In 6 months time she will have follow-up ultrasound and mammogram of the right breast. She will see me after the study or p.r.n.. All questions answered. Coding Level of Care Code New Pt Level 4 (44131) Diagnoses Lump of axillary tail of right breast N63.31
[2024-09-20 09:47] VITALS: BP 138/83; PULSE 93; O2SAT 96; BMI 28.9
--- OUTSIDE RECORDS SUMMARY | 2024-09-20 11:21 | XMS_ITS | Patient Health Record ---
Author Organization [facility] Address [address] [place] [address] Care Team Providers Care Dental Equipment Mechanic Name Role Phone Matt GIORDANO, Leandro Primary Care Provider UnavailXavier Choudhary Unavailable [phone] Allergies No Known Allergies Reason For Referral No Information Medications Medication SIG (Take, Route, Frequency, Duration) Notes [...] BY MOUTH EVERY MORNING for 90 Active Immunizations Vaccine Route Administration Date Status Comme nts Influenza Unknown 04/01/2022 Administered Social History Tobacco Use: Social History Observation Description Date Details (start date - stop date) Never Smoker NA - NA Tobacco Use/Smoking Question Answer Notes Patient is a nonsmoker Alcohol Screen Question Answer Notes Did you have a drink containing alcohol in the p ast year? No Points 0 Interpretation Negative Section Notes: Nonsmoker; no sig alcohol Problems Problem Type SNOMED Code ICD Code Onset Dates Problem Status W/U Status Risk Notes Problem Colon cancer screening (939737902) Colon cancer screening (Z12.11) Active confirmed Problem Diverticular disease of colon (393204812) Diverticulosis of large intestine without perforation or abscess without bleeding (K57.30) Active confirmed Problem Gastritis (8033178) Gastritis (K29.70) Active confirmed Problem Gastroesophageal reflux disease (030775462) GERD (gastroesophageal reflux disease) (K21.9) Active confirmed Problem Gastroesophageal reflux disease with esophagitis (disorder) (498800684) Gastro-esophageal reflux disease with esophagitis, without bleeding (K21.00) Active confirmed Plan Of Treatment Future Test Test Name Order Date UPPER GI ENDOSCOPY 04/01/2022 COLONOSCOPY 04/01/2022 Insurance Providers Payer Name Payer Address Payer Phone Subscriber Number Group Number Insured Name Patient Relationship to Insured Coverage Start Date Coverage End Date MEDICARE OF [address]I [address] [place], [place] [id number] [phone] [id number] ULISES WHITING Self - patient is the insured [employer], & [employer] [facility] & [address] [place] [address] [id number] ULISES WHITING Self - patient is the insured Medical (General) History Medical History History ICD Code Right breast cancer > 20 years ago--lump ectomy/lymph nodes/XRT Hypertension Denies [place],DM,CVA,Lung disease,renal dise ase Neg. [place] [address] Hernandez EGD in 2008 with H.pylori, s/p antibioti c treatment Anxiety Hyperlipidemia Surgical History Surgery Date(Month/Year) Cataracts Breast cancer as above Right thigh--removal of basal cell skin cancer
== END 2024-09-20 10:02 | disposition home or self-care (01) ==
LOC: HO.HGS 09:46
PROVIDERS: PCP Family Medicine; Referring Provider Obstetrics & Gynecology; Visit Provider Surgery
DX: N63.31 Unspecified lump in axillary tail of the right breast (principal)
CPT/HCPCS: 99204

== ENCOUNTER → 2024-09-20 09:46 | Outpatient (BNVA) | payer MEDICARE, OTHER, SELFPAY | PROVIDERS: PCP Family Medicine; Referring Provider Obstetrics & Gynecology; Visit Provider Surgery | DX: N63.31 Unspecified lump in axillary tail of the right breast (principal) | CPT/HCPCS: 99202 ==

== ENCOUNTER 2025-01-05 12:08 | Outpatient (REF) | payer MEDICARE, OTHER, SELFPAY ==
[2025-01-05 12:28] LABS: MANUAL DIFF FLAG NO
--- OUTSIDE RECORDS SUMMARY | 2025-01-05 12:46 | XMS_ITS | Patient Health Record ---
Author Organization [facility] Address [address] [place] [address] Care Team Providers Care Sander Machine Name Role Phone Matt (RETIRED) Leandro GIORDANO Primary Care Provider Unavailable Xavier Farah Unavailable [phone] Allergies No Known Allergies Reason For Referral [...] Status Risk Notes Problem Colon cancer screening (413282819) Colon cancer screening (Z12.11) Active confirmed Problem Diverticular disease of colon (467448112) Diverticulosis of large intestine without perforation or abscess without bleeding (K57.30) Active confirmed Problem Gastritis (0109315) Gastritis (K29.70) Active confirmed Problem Gastroesophageal reflux disease (501853239) GERD (gastroesophageal reflux disease) (K21.9) Active confirmed Problem Gastroesophageal reflux disease with esophagitis (disorder) (073607397) Gastro-esophageal reflux disease with esophagitis, without bleeding (K21.00) Active confirmed Plan Of Treatment Future Test Test Name Order Date UPPER GI ENDOSCOPY 04/01/2022 COLONOSCOPY 04/01/2022 Insurance Providers Payer Name Payer Address Payer Phone Subscriber Number Group Number Insured Name Patient Relationship to Insured Coverage Start Date Coverage End Date MEDICARE OF [address]I [address] [place] [address] [id number] ULISES WHITING Self - patient is the insured [employer], & [employer] HEALTH & [address] [place] [address] [id number] ULISES WHITING Self - patient is the insured Medical (General) History Medical History History ICD Code Right breast cancer > 20 years ago--lump ectomy/lymph nodes/XRT Hypertension Denies [place],DM,CVA,Lung disease,renal dise ase Neg. [place] [address] Hernandez EGD in 2008 with H.pylori, s/p antibioti c treatment Anxiety Hyperlipidemia Surgical History Surgery Date(Month/Year) Cataracts Breast cancer as above Right thigh--removal of basal cell skin cancer
[2025-01-05 13:16] LABS: Hematocrit 36.7 % (37.0-47.0); Hemoglobin 12.5 g/dl (12.0-16.0); Imm Gran Abs Auto 0.04 X10*3/uL (0.00-0.03); Imm Gran Pct Auto 0.6 % (0.0-0.4); Lymphocytes Absolute Auto 1.5 X10*3/uL (1.2-4.9); Mean Corpuscular HGB Conc 34.1 g/dl (31.0-35.0); Mean Corpuscular Hemoglobin 27.4 pg (27.0-33.0); Mean Corpuscular Volume 80.5 fL (80.0-98.0); NRBC Abs Auto 0.000 X10*3/uL (0.0-0.012); NRBC Pct Auto 0.0 /100WBC (0.0-0.2); Platelet Count 126 X10*3/uL (160-400); Red Blood Count 4.56 X10*6/uL (4.20-5.50); White Blood Count 6.8 X10*3/uL (4.8-10.8)
[2025-01-05 13:33] LABS: Anion Gap 10 (12-20); Blood Urea Nitrogen 13 mg/dL (9-16); Carbon Dioxide 27 mmol/L (22-29); Chloride 108 mmol/L (96-108); Estimated Glomerular Filt Rate 55; Potassium 4.2 mmol/L (3.3-5.1); Sodium 141 mmol/L (135-145)
== END 2025-01-05 12:09 | disposition home or self-care (01) ==
LOC: HO.LAB 12:08
PROVIDERS: PCP Family Medicine; Visit Provider Family Medicine
DX: I10 Essential (primary) hypertension (principal); D69.6 Thrombocytopenia, unspecified
CPT/HCPCS: 36415; 80051; 82565; 84520; 85025

== ENCOUNTER 2025-01-17 12:58 | Outpatient (AMB) | payer MEDICARE, OTHER, SELFPAY ==
--- NOTE | 2025-01-17 13:22 | A.OFFVIS_ITS ---
Vital Signs 01/17/25 13:26 Height 5 ft 8 in Weight 198 lb 3.129 oz BMI 30.1 BP 150/84 H Blood Pressure Location Rt brachial Position Sitting Pulse 59 Pulse Source Pulse Oximeter Pulse Oximetry (%) 98 Oxygen Delivery Method Room Air Intake Visit Reasons: Osteoporosis Intake Note: Patient presents for Osteoporosis follow up. Allergies No Known Allergies Allergy (Verified 01/17/25 13:25) Medication List - Last Reconciled 01/17/25 by Linda Clemente MD amlodipine 10 mg PO DAILY buspirone 10 mg PO TID calcitriol 0.5 mcg PO DAILY citalopram 10 mg PO DAILY losartan 100 mg PO DAILY omeprazole 40 mg PO DAILY simvastatin 40 mg PO BEDTIME trazodone 50 mg PO BEDTIME HPI Comments Details: Patient is a 74-year-old female with hx of breast cancer s/p lumpectomy and radiation, anxiety, hypertension, depression, GERD, hyperlipidemia, polyarticular OA, and osteoporosis here today for follow up Interval History: Patient last seen 05/[address] Murphy. - Not on any osteoporosis trt - No falls or fractures - Intermittent joint pain 07/24 OA - Still did not want to pursue trt Today, - No falls or fractures - Still not sure about starting medication Rheumatologic History: Osteoporosis 2020 Alendronate ?duration. stopped due to intolerance Prolia 07/2022. Did not start due to sear of side effects Initial history: This is a 71-year-old female with a past medical history of right breast cancer at/B lumpectomy and radiation many years ago, anxiety, hypertension presents for evaluation of osteoporosis. Patient was started on alendronate for osteoporosis but developed significant body aches and had to stop it. EGD also showed esophagitis. Patient has no complaints today. She was not on any treatment currently for osteoporosis. Current Rheumatology Medication(s): [facility]riol [facility] Medical History Breast cancer, right Depression Anxiety GERD (gastroesophageal reflux disease) High blood pressure High cholesterol Surgical History S/P lumpectomy, right breast Social History (Updated 01/17/25 @ 13:26 by MARITZA Colon) Household Members: Spouse Housing: House Alcohol intake: never Patient Tobacco Use Status: Never used Tobacco Sexual orientation: Straight/Heterosexual Gender identity: Female Female Reproductive History Menstrual Age of Menarche: 14 Review of Systems Const Details: Review of Systems Constitutional: Denies fever, chills, weight loss ENT: Denies vision changes, eye pain or eye redness, dental caries, dry mouth GI: Denies nausea, vomiting, diarrhea, abdominal pain, change in BM Pulm: Denies SOB, DICKEY, hemoptysis, wheezing Cards: Denies chest pain, palpitations Skin: Denies Raynaud's, rash, nail changes, photosensitivity, DEPLOYMENT SPECIALIST: Denies headaches, weakness, paresthesias, recurrent falls MSK: as per HPI All other systems reviewed and are unremarkable except noted above Physical Exam Exam Exam: Vital signs reviewed Physical Examination CONSTITUITIONAL Patient alert and cooperative. Well appearing and in no apparent painful distress HEENT Conjunctiva and sclera clear. No lymphadenopathy. CHEST/RESPIRATORY SYSTEM Normal respiratory effort and able to speak in complete sentences. Clear to auscultation bilaterally. No crackles, rales, rhonchi, wheezes heard. CARDIAC SYSTEM Regular rate and rhythm. S1 and S2 heard no murmurs. Radial pulses intact bilaterally MSK Hands * Right Hand: Able to make a fist. No swelling or tenderness to palpation of these joints. * Left Hand: Able to make a fist. No swelling or tenderness to palpation of these joints. * Herbedens nodes noted bilaterally Wrists * Right Wrist: Full ROM. 70 degrees of wrist flexion, 80 degrees of wrist extension. No swelling or TTP * Left Wrist: Full ROM. 70 degrees of wrist flexion, 80 degrees of wrist extension. No swelling or TTP Elbows * Right Elbow: Full ROM. No swelling or TTP. No TTP of the medial and lateral epicondyles * Left Elbow: Full ROM. No swelling or TTP. No TTP of the medial and lateral epicondyles Shoulders * Right shoulder: Full ROM. No swelling noted. No TTP of the AC joint, subacromial bursa or posterior shoulder * Left shoulder: Full ROM. No swelling noted. No TTP of the AC joint, subacromial bursa or posterior shoulder Knees * Right knee: Full ROM. No swelling noted. No TTP of the knee joint lie or pes anserine bursa * Left knee: Full ROM. No swelling noted. No TTP of the knee joint lie or pes anserine bursa. * Crepitations felt bilaterally Ankles * Right ankle: Good ankle dorsiflexion and plantar flexion. No swelling. No TTP of the ankle joint * Left ankle: Good ankle dorsiflexion and plantar flexion. No swelling. No TTP of the ankle joint Feet * Right foot: Negative squeeze test * Left foot: Negative squeeze test Tender points? * No tenderness to palpation of the bilateral trapezius, supraspinatus, anterior costochondral junctions, bilateral suboccipital muscle insertions SKIN No rashes Vital Signs: Last Vital Signs Pulse 59 01/17/25 13:26 BP 150/84 H 01/17/25 13:26 Pulse Ox 98 01/17/25 13:26 Oxygen Delivery Method Room Air 01/17/25 13:26 BMI result Body Mass Index 30.1 Results Reviewed Results Reviewed: Laboratory Tests 08/16/24 01/05/25 09:35 12:26 WBC 6.8 RBC 4.56 Hgb 12.5 Hct 36.7 L Plt Count 126 L Sodium 141 Potassium 4.2 Chloride 108 Carbon Dioxide 27 BUN 13 Creatinine 1.00 AST 32 H ALT 27 Alkaline Phosphatase 85 25-OH Vitamin D Total 32.4 DEXA 05/2024 FINDINGS: The bone mineral density of the lumbar spine is 0.878 with a T-score of -2.5, and a Z-score of -1.5. This represents a BMD change of 5.4% compared to the prior exam. This is statistically significant. The bone mineral density of the left total hip is 0.832 with a T-score of -1.4, and a Z-score of -0.3. This represents BMD change of 1.1% compared to the prior exam. This is not statistically significant. The bone mineral density of the left femoral neck is 0.833 with a T-score of -1.5, and a Z-score of -0.2. This represents BMD change of 6.4% compared to the prior exam. Assessment & Plan Assessment & Plan (1) Osteoporosis: Comment: DEXA 04/2020. AP Spine -2.5, Left femur neck -1.7, Left femur total -1.3 DEXA 04/2022. AP Spine -2.9, Left femur neck -1.8, Left femur total -1.5 DEXA 07/2024. AP Spine -2.5, Left femur neck -1.5, Left femur total -1.4 Code(s): M81.0 - Age-related osteoporosis without current pathological fracture Category: Medical Qualifiers: Osteoporosis type: age-related Presence of current pathological fracture: without current pathological fracture Qualified Code(s): M81.0 - Age- related osteoporosis without current pathological fracture Plan: #Osteoporosis Patient is a 74-year-old female with osteoporosis here today for follow up. Patient is still concerned about the side effects of a antiresorptive therapies. Had a very long discussion with patient about the different treatment options including Prolia and IV zoledronic acid. Patient given a pamphlet and she will discuss this with her family. Plan - Consider antiresorptive therapy - RTC 6 months - Labs before visit: CMP and Vit D Plan I spent 35 minutes reviewing the record and labs, taking a history, examining the patient, discussing the treatment plan, ordering diagnostic work up and documenting in the medical record Orders: Orders Vitamin D 25-OH Total 6 Months M81.0 - Age-related osteoporosis without current pathological fracture Comprehensive Met. Panel 6 Months M81.0 - Age-related osteoporosis without c urrent pathological fracture Coding Level of Care Code Est Pt Level 4 (73323) Diagnoses Age-related osteoporosis without current pathological fracture M81.0 Osteoporosis type: age-related Presence of current pathological fracture: without current pathological fracture
[2025-01-17 13:26] VITALS: BP 150/84; PULSE 59; O2SAT 98; BMI 30.1
--- OUTSIDE RECORDS SUMMARY | 2025-01-17 13:45 | XMS_ITS | Patient Health Record ---
Author Organization [facility] Address [address] [place] [address] Care Team Providers Care Manager Distribution Name Role Phone Matt (RETIRED) Leandro GIORDANO Primary Care Provider Unavailable Xavier Farah Unavailable [phone] Allergies No Known Allergies Reason For Referral [...] Status Risk Notes Problem Colon cancer screening (446012907) Colon cancer screening (Z12.11) Active confirmed Problem Diverticular disease of colon (440287402) Diverticulosis of large intestine without perforation or abscess without bleeding (K57.30) Active confirmed Problem Gastritis (1416143) Gastritis (K29.70) Active confirmed Problem Gastroesophageal reflux disease (322171368) GERD (gastroesophageal reflux disease) (K21.9) Active confirmed Problem Gastro-esophagea l reflux disease with esophagitis, without bleeding (K21.00) Active confirmed Plan Of Treatment Future Test Test Name Order Date UPPER GI ENDOSCOPY 04/01/2022 COLONOSCOPY 04/01/2022 Insurance Providers Payer Name Payer Address Payer Phone Subscriber Number Group Number Insured Name Patient Relationship to Insured Coverage Start Date Coverage End Date MEDICARE OF [address] [address] [place], [place] [id number] [phone] [id number] ULISES WHITING Self - patient is the insured [employer] [facility] [address] [facility] [place] [address] [id number] ULISES WHITING Self - patient is the insured Medical (General) History Medical History History ICD Code Right breast cancer > 20 years ago--lump ectomy/lymph nodes/XRT Hypertension Denies SD,DM,CVA,Lung disease,renal dise ase Neg. [place] [address] Hernandez EGD in 2008 with H.pylori, s/p antibioti c treatment Anxiety Hyperlipidemia Surgical History Surgery Date(Month/Year) Cataracts Breast cancer as above Right thigh--removal of basal cell skin cancer
== END 2025-01-17 14:10 | disposition home or self-care (01) ==
LOC: HO.RHE 12:58
PROVIDERS: PCP Family Medicine; Visit Provider Student in an Organized Health Care Education/Training Program
DX: M81.0 Age-related osteoporosis without current pathological fracture (principal)
CPT/HCPCS: 99214

== ENCOUNTER → 2025-01-17 12:58 | Outpatient (BNVA) | payer MEDICARE, OTHER, SELFPAY | PROVIDERS: PCP Family Medicine; Visit Provider Student in an Organized Health Care Education/Training Program | DX: M81.0 Age-related osteoporosis without current pathological fracture (principal) | CPT/HCPCS: 99212 ==

== ENCOUNTER 2025-03-08 08:39 | Outpatient (REF) | payer MEDICARE, OTHER, SELFPAY ==
--- NOTE | ~2025-03-08 | XR_ITS ---
EXAMINATION: XR SHOULDER, RIGHT CLINICAL INFORMATION: M25.511 - Pain in right shoulder COMPARISON: None available. TECHNIQUE: AP external rotation, Grashey, scapular Y, and axillary views of the right shoulder. FINDINGS: No acute cortical disruption or malalignment. Mild subchondral cyst formation along the articular surface of the acromioclavicular joint and greater tuberosity right humerus. No lytic or blastic lesions. No soft tissue calcifications. Osteopenia versus osteoporosis. Probable old traumatic deformities in the ribs right upper hemithorax. Multilevel thoracic spondylosis and a shaped curvature of the thoracic spine no fully included in the [id number].. XR/XR shoulder RT min 2V IMPRESSION: Degenerative changes, mild. Probable old traumatic deformity in the ribs right upper hemithorax no fully evaluated. Electronically signed by: Arian Hawthorne MD 03/08/2025 09:05 AM EDT
--- NOTE | ~2025-03-08 | XR_ITS ---
EXAMINATION: XR KNEE, RIGHT CLINICAL INFORMATION: M25.561 - Pain in right knee COMPARISON: None available. TECHNIQUE: AP oblique and lateral views of the right knee. FINDINGS: No acute cortical disruption or malalignment. No lytic or blastic lesions. No suprapatellar bursa joint effusion. Small exostosis at the quadriceps tendon insertion. No soft tissue calcifications. XR/XR knee RT 2V IMPRESSION: Enthesopathy, quadriceps tendon. Electronically signed by: Arian Hawthorne MD 03/08/2025 09:06 AM EDT
--- OUTSIDE RECORDS SUMMARY | 2025-03-08 10:04 | XMS_ITS | Patient Health Record ---
Author Organization [facility] Address [address] [place] [address] Care Team Providers Care Pilot Teacher Name Role Phone Matt (RETIRED) Leandro GIORDANO Primary Care Provider Unavailable Xavier Farah Unavailable [phone] Allergies No Known Allergies Reason For Referral No Information Medications Medication SIG (Take, Route, Frequency, Duration) Notes Start Date End Date Status Simvastatin 40 MG Oral for 90 Active busPIRone HCl 10 MG TAKE 1 TABLET BY JARERTT TH THREE TIMES A DAY Oral for [...] Status Risk Notes Problem Colon cancer screening (109472988) Colon cancer screening (Z12.11) Active confirmed Problem Diverticular disease of colon (295020425) Diverticulosis of large intestine without perforation or abscess without bleeding (K57.30) Active confirmed Problem Gastritis (4731250) Gastritis (K29.70) Active confirmed Problem Gastroesophageal reflux disease (548701822) GERD (gastroesophageal reflux disease) (K21.9) Active confirmed Problem Gastroesophageal reflux disease with esophagitis (disorder) (504492859) Gastro-esophageal reflux disease with esophagitis, without bleeding (K21.00) Active confirmed Plan Of Treatment Future Test Test Name Order Date UPPER GI ENDOSCOPY 04/01/2022 COLONOSCOPY 04/01/2022 Insurance Providers Payer Name Payer Address Payer Phone Subscriber Number Group Number Insured Name Patient Relationship to Insured Coverage Start Date Coverage End Date MEDICARE OF [address] [address] [place] [address] [id number] ULISES WHITING Self - patient is the insured [employer] [facility] & [address] [place] [address] [id number] ULISES WHITING Self - patient is the insured Medical (General) History Medical History History ICD Code Right breast cancer > 20 years ago--lump ectomy/lymph nodes/XRT Hypertension Denies MA,DM,CVA,Lung disease,renal dise ase Neg. [place] [address] Hernandez EGD in 2008 with H.pylori, s/p antibioti c treatment Anxiety Hyperlipidemia Surgical History Surgery Date(Month/Year) Cataracts Breast cancer as above Right thigh--removal of basal cell skin cancer
== END 2025-03-08 08:40 | disposition home or self-care (01) ==
LOC: HO.XRAY 08:39
PROVIDERS: PCP Physician Assistant Medical; Visit Provider Physician Assistant Medical
DX: M25.511 Pain in right shoulder (principal); M25.561 Pain in right knee
CPT/HCPCS: 73030; 73560

== ENCOUNTER → 2025-03-08 08:45 | Outpatient (BNV) | payer MEDICARE, OTHER, SELFPAY | PROVIDERS: PCP Physician Assistant Medical; Visit Provider Radiology Diagnostic Radiology | DX: M85.611 Other cyst of bone, right shoulder (principal); M25.561 Pain in right knee | CPT/HCPCS: 73030; 73560 ==

== ENCOUNTER 2025-03-20 08:39 | Outpatient (REF) | payer MEDICARE, OTHER, SELFPAY ==
--- NOTE | ~2025-03-20 | MM_ITS ---
EXAMINATION(S): MM DIAGNOSTIC DIGITAL BREAST TOMOSYNTHESIS, LEFT CLINICAL INFORMATION: This is a 6-month follow-up of left breast asymmetry in the lower axillary region on the MLO view, without sonographic correlate. Personal history of right breast lumpectomy for breast cancer. COMPARISON: Comparison made to multiple prior, most recent September 12, 2024, and most remote December 31, 2016. TECHNIQUE: Digital breast tomosynthesis is performed in MLO along with computer-aided detection (CAD). Synthesized 2D images are generated from the tomosynthesis. FINDINGS: BREAST COMPOSITION: The breasts are heterogeneously dense, which may obscure small masses. LEFT BREAST: Previously suggested asymmetry measuring 0.8 cm at 11 cm from the nipple, overlying the pectoralis muscle on the MLO view (MLO 32/87). On today's images, the appearance is similar to older prior studies as far back as 2016, and most likely represented a lymph node. No further imaging follow-up needed. MM/MM tomosynthesis diagnostic LT IMPRESSION: LEFT BREAST: Chronic lymph node, similar to 2017. Benign, no mammographic evidence of malignancy. Patient may return to routine screening mammogram expected in August 2025. ASSESSMENT: Category 2: Benign RECOMMENDATION: 1 year F/U Results were provided to the patient at time of visit by the technologist. This patient's information was entered into a reminder system with a target due date for their next mammogram. Electronically signed by: Ansley Barker MD 03/20/2025 09:45 AM EDT
--- OUTSIDE RECORDS SUMMARY | 2025-03-20 09:07 | XMS_ITS | Patient Health Record ---
Author Organization [facility] Address [address] [place] [address] Care Team Providers Care Oven Roaster Name Role Phone Matt (RETIRED) Leandro GIORDANO Primary Care Provider Unavailable Xavier Farah Unavailable [phone] Allergies No Known Allergies Reason For Referral [...] Status Risk Notes Problem Colon cancer screening (293426200) Colon cancer screening (Z12.11) Active confirmed Problem Diverticular disease of colon (544722527) Diverticulosis of large intestine without perforation or abscess without bleeding (K57.30) Active confirmed Problem Gastritis (0908350) Gastritis (K29.70) Active confirmed Problem Gastroesophageal reflux disease (189623241) GERD (gastroesophageal reflux disease) (K21.9) Active confirmed Problem Gastroesophageal reflux disease with esophagitis (disorder) (428525213) Gastro-esophageal reflux disease with esophagitis, without bleeding (K21.00) Active confirmed Plan Of Treatment Future Test Test Name Order Date UPPER GI ENDOSCOPY 04/01/2022 COLONOSCOPY 04/01/2022 Insurance Providers Payer Name Payer Address Payer Phone Subscriber Number Group Number Insured Name Patient Relationship to Insured Coverage Start Date Coverage End Date MEDICARE OF [address] [address] [place] [address] [id number] ULISES WHITING Self - patient is the insured [employer] [facility] & [address] [place] [address] [id number] ULISES WHITING Self - patient is the insured Medical (General) History Medical History History ICD Code Right breast cancer > 20 years ago--lump ectomy/lymph nodes/XRT Hypertension Denies CT,DM,CVA,Lung disease,renal dise ase Neg. [place] [address] Hernandez EGD in 2008 with H.pylori, s/p antibioti c treatment Anxiety Hyperlipidemia Surgical History Surgery Date(Month/Year) Cataracts Breast cancer as above Right thigh--removal of basal cell skin cancer
== END 2025-03-20 08:40 | disposition home or self-care (01) ==
LOC: HO.MAMMO 08:39
PROVIDERS: PCP Physician Assistant Medical; Visit Provider Family Medicine
DX: N64.89 Other specified disorders of breast (principal)
CPT/HCPCS: 77061; 77065

== ENCOUNTER → 2025-03-20 09:00 | Outpatient (BNV) | payer MEDICARE, OTHER, SELFPAY | PROVIDERS: PCP Physician Assistant Medical; Visit Provider Radiology Body Imaging | DX: N63.32 Unspecified lump in axillary tail of the left breast (principal) | CPT/HCPCS: 77065; G0279 ==

== ENCOUNTER 2025-03-29 09:06 | Outpatient (AMB) | payer MEDICARE, OTHER, SELFPAY ==
--- NOTE | 2025-03-29 09:21 | A.OFFVIS_ITS ---
Vital Signs 03/29/25 09:31 Height 5 ft 8 in Weight 197 lb BMI 30.0 BP 138/65 Blood Pressure Location Lt brachial Position Sitting Pulse 74 Intake Visit Reasons: 6 month follow up Lump previous lymph node bx Intake Note: This patient presents for a six month follow-up lump right axilla along scar/ previous lymph node Bx. Pt c/o; had x-rays done and was told the pain in the right arm is part of arthritis , pain worse when picking up objects DI: 03/20/2025 DI MM Building Construction Teacher Required: No Accompanied by: Self / Same As Patient Allergies No Known Allergies Allergy (Verified 03/29/25 09:31) HPI HPI 6 month follow up Lump previous lymph node bx: Details: She was seen by Dr. Goetz 6 months ago last September, because of a ?lump? on the right axilla. This seemed to have been a fibrotic scar, as imaging studies were unremarkable. She denies any new complaints with regards to this. She has a history of lumpectomy and axillary dissection for breast cancer on the right side. She has she is here for follow up. She does not feel any ?lump? in the axilla. She says that she did feel some shooting pain on the axilla towards the right arm around that time. She had imaging studies last August, which did not suggest any normal findings on the right breast nor axilla. [facility] Medical History Obesity (BMI 30.0-34.9) History of right breast cancer Right shoulder pain Right knee pain Breast cancer, right Depression Anxiety GERD (gastroesophageal reflux disease) High blood pressure High cholesterol Surgical History History of colonoscopy (~05/23/22) S/P lumpectomy, right breast Family History Mother No problems noted. Father No problems noted. Social History Household Members: Spouse Housing: House Alcohol intake: never Patient Tobacco Use Status: Never used Tobacco e-Cigarette/Vaping Use: Never Used service: No Current occupational status: retired Sexual orientation: Straight/Heterosexual Gender identity: Female Cognitive needs: No Hearing needs: No Vision needs: Yes (Reading glasses) Female Reproductive History Menstrual Age of Menarche: 14 Review of Systems Const Denies chills and Denies fever(s) Card Denies chest pain, Denies dyspnea and Denies dyspnea on exertion Resp Denies cough, Denies dyspnea and Denies dyspnea on exertion GI Denies hematochezia and Denies change in bowel habits Denies hematuria Musc Denies back pain, Reports arthralgias and Denies limited range of motion Neuro Denies focal weakness and Denies convulsions Psych Denies depression and Denies mood swings Physical Exam Const General: comfortable and no acute distress Orientation/consciousness: patient oriented x3 Neck Neck: Yes no lymphadenopathy Chest Other: No palpable breast masses, no axillary lymphadenopathy, no palpable axillary mass on the right, surgical scar on the right breast seen Resp Auscultation: clear to auscultation bilaterally Cardio Rhythm: regular rhythm GI Palpation (GI): Soft to palpation, nontender and no guarding Neuro General: patient oriented x3 Assessment & Plan Assessment & Plan (1) Lump of axillary tail of right breast: Comment: At the site of scar of previous right axillary lymph node dissection Code(s): N63.31 - Unspecified lump in axillary tail of the right breast Category: Surgical Plan: I did not feel any mass on the area where she had previously felt pain and a question of the mass. She denies any palpable mass currently and describes some shooting pain before She is scheduled for another mammogram in 6 months for the right breast as well as for the left breast. I told her that I will see her in the office if there is anything abnormal at that time She is comfortable with the plan. Coding Level of Care Code Est Pt Level 3 (63082) Diagnoses Lump of axillary tail of right breast N63.31
[2025-03-29 09:31] VITALS: BP 138/65; PULSE 74
== END 2025-03-29 09:45 | disposition home or self-care (01) ==
LOC: HO.HGS 09:07
PROVIDERS: PCP Family Medicine; Visit Provider Surgery
DX: N63.31 Unspecified lump in axillary tail of the right breast (principal)
CPT/HCPCS: 99213

== ENCOUNTER → 2025-03-29 09:06 | Outpatient (BNVA) | payer MEDICARE, OTHER, SELFPAY | PROVIDERS: PCP Family Medicine; Visit Provider Surgery | DX: N63.31 Unspecified lump in axillary tail of the right breast (principal); Z85.3 Personal history of malignant neoplasm of breast | CPT/HCPCS: 99212 ==